=== PATIENT | female | born 1960 | race Caucasian/White ===

== ENCOUNTER 2024-07-17 11:18 | Inpatient (IN) | payer MEDICARE, BC, SELFPAY ==
[2024-07-17] VITALS (12 sets, daily range): BP systolic 88–117; BP diastolic 66–97; PULSE 108–151; RESP 16–98; TEMP 36.5–36.7; O2SAT 93–98; BMI 30.1; BMI 29.9; BMI 29.2
--- NOTE | 2024-07-17 11:46 | XR_ITS ---
Examination: CT brain head without contrast. 2-D sagittal coronal reconstructions Date and time of exam:July 17, 2024 1158 hours INDICATIONS: Onset lightheadedness dizziness episodes today CTDI: vol (mGy):45.3 DLP: (mGycm):943 Technique: Multiple CT axial sections of the brain have been obtained, 5 mm slice thickness. Contrast has not been administered. 2-D sagittal, coronal reconstructions have been obtained Low dose protocols were performed. One or more of the following dose reduction techniques were used; automated exposure control, adjustment of the mA and/or KV according to patient size, use of iterative reconstruction technique. Findings: No significant ventricular enlargement. Intra-axial or extra-axial hemorrhage density is not seen. No mass effect or midline shift Basal cisterns are not remarkable. Fourth ventricle is midline. Cranial vault intact. Old infarct left cerebellar hemisphere Impression: Negative for acute hemorrhage, mass effect or midline shift If symptoms persist, consider brain MRI follow-up, stroke protocol
--- NOTE | 2024-07-17 11:46 | EKG_ITS ---
[facility] Test Date: 2024-07-17 Pat Name: BISMARK PINTO Department: Room: - Gender: Female Carrier Blower: : 1960 Requested By: Hill Traore Order Number: [id number] Reading MD: Hill Traore Measurements Intervals [place] Rate: 156 P: AL: QRS: 62 QRSD: 84 T: 0 QT: 257 QTc: 415 Interpretive Statements ATRIAL FIBRILLATION WITH RAPID VENTRICULAR RESPONSE NONSPECIFIC ST & T-WAVE ABNORMALITY CRITICAL TEST RESULT No previous ECG available for comparison /store/S0/[id number]/ecg/[id number].pdf
--- NOTE | 2024-07-17 11:47 | PD.EDRME ---
Rapid Medical Screening Exam RME Arrival date/time: 07/17/24 11:18 63-year-old female with a history of a CVA, presents to the emergency room with a chief complaint of a headache, dizziness, lightheadedness and left-sided chest pain x 3 days I have greeted and performed a focused initial assessment of this patient. A comprehensive ED assessment and evaluation of the patient, analysis of all test results, and completion of the medical decision making process will be conducted by additional ED providers. Chief Complaint: Shortness of Breath/Dyspnea Time Seen by Provider: 07/17/24 11:26 Vital signs reviewed by provider: Yes
--- NOTE | 2024-07-17 12:19 | EDNOTE_ITS ---
ED SOB =RME/HPI General Chief Complaint: Shortness of Breath/Dyspnea Stated Complaint: SOB X1WEEK AND PAIN BEHIND EYES SINCE LAST NIGHT Time Seen by Provider: 07/17/24 11:26 Arrival date/time: 07/17/24 11:18 Limitations: no limitations RME / HPI RME / HPI Narrative: 07/17/24 11:18 63-year-old female with a history of a CVA, presents to the emergency room with a chief complaint of a headache, dizziness, lightheadedness and left-sided chest pain x 3 days I have greeted and performed a focused initial assessment of this patient. A comprehensive ED assessment and evaluation of the patient, analysis of all test results, and completion of the medical decision making process will be conducted by additional ED providers. DR. LERMA MAIN ED EVALUATION: 63 year old female with history of CVA, hypertension, CHF, and cardiomyopathy who presents to the emergency department for evaluation of shortness of breath. She reports feeling increasingly winded for approximately one week, with symptoms worsening on exertion. Last night, she experienced a sharp, shooting pain located behind both eyes, causing concern and prompted her to seek care today. On arrival to the ED, the patient was found to be in atrial fibrillation with rapid ventricular response, with a heart rate in the 160s. She denies any prior diagnosis or history of atrial fibrillation. The patient also denies chest pain, cough, palpitations, abdominal pain, nausea, vomiting, diarrhea, or urinary symptoms. Related Data Allergies Allergy/AdvReac Type Severity Reaction Status Date / Time ADONIS Inhibitors Allergy Severe Anaphylaxis Verified 07/17/24 11:24 Review of Systems Review of Systems Narrative Review of Systems: GEN: No fever, no chills, no weight loss EYES: No discharge, no visual changes, +pain bejhind both eyes HEENT: No ear pain, no congestion, no sore throat PULM: + shortness of breath, no cough, no congestion CV: No chest pain, + dyspnea on exertion, no palpitations GI: No nausea, no vomiting, no diarrhea, no pain, no constipation : No frequency, no urgency and no dysuria MUSC/SKEL No joint pain, no back pain SKIN: No rash NEURO: No weakness, no headache Past Medical History Past Medical History CARDIAC: Positive Congestive Heart Failure RESPIRATORY: Positive Asthma; Negative Chronic Obstructive Pulmonary Disease (COPD) GENITOURINARY: Negative Renal Disease REPRODUCTIVE: Positive Breast Cancer ENDOCRINE: Negative Diabetes Mellitus Type 1 or Diabetes Mellitus Type 2 OTHER HISTORY: Positive Cancer and Breast Cancer Social History SMOKING STATUS: Never smoker ED Exam General Limitations: Present no limitations General appearance: Present alert, in no apparent distress and obese Head Head exam: Present atraumatic and normocephalic Eye Eye exam: Present normal appearance, PERRL and EOMI ENT ENT exam: Present normal exam, normal oropharynx and mucous membranes moist Neck Neck exam: Present normal inspection, full ROM and trachea midline Chest Chest inspection: Present normal inspection and symmetric chest wall rise Respiratory Respiratory exam: Present normal lung sounds bilaterally Cardiovascular Cardiovascular exam: Present irregular rhythm (irregularly irregular), normal heart sounds and other (No murmur, no S3 ) Abdominal Exam Abdominal exam: Present soft and normal bowel sounds Extremities Exam Extremities exam: Present normal inspection and full ROM Back Exam Back exam: Present normal inspection and full ROM Neurological Exam Neurological exam: Present alert, oriented X3 and CN II-XII intact Psychiatric Psychiatric exam: Present normal affect and normal mood Skin Skin exam: Present warm, dry, intact and normal color Course Quality Measures none Orders Category Date Time Status COVID-19 Screening Questionnaire NOW Care 07/17/24 15:41 Active Decision to Admit X1 Care 07/17/24 15:41 Active EKG (ED ONLY) *Do not use* NOW Care 07/17/24 11:[address] head/brain wo con Stat Exams 07/17/24 11:46 Completed CXRP [XR chest 1V portable] Stat Exams 07/17/24 12:23 Completed EKG (ED Only) Stat Exams 07/17/24 11:46 Draft BNP [B-Type Natriuretic Peptide] Stat Lab 07/17/24 12:18 Completed CBC Stat Lab 07/17/24 12:18 Completed Comprehensive Metabolic Panel Stat Lab 07/17/24 12:18 Completed Drug Screen,Urine Stat Lab 07/17/24 11:46 Stop Req Magnesium Stat Lab 07/17/24 12:18 Completed Partial Thromboplastin Time Stat Lab 07/17/24 12:18 Completed Prothrombin Time with INR Stat Lab 07/17/24 12:18 Completed Troponin I Stat Lab 07/17/24 12:18 Completed Urinalysis Stat Lab 07/17/24 13:55 Completed Urine Culture Stat Lab 07/17/24 13:55 Received DILTIAZEM in D5W 125 MG Med 07/17/24 12:24 Active 125 mg in 125 ml IV 5 mg/hr Diltiazem Inj [Cardizem Inj] Med 07/17/24 12:23 Discontinued 15 mg IV X1 ONE Enoxaparin [Lovenox] Med 07/17/24 15:25 Discontinued 80 mg SC X1 ONE Furosemide Inj [Lasix Inj] Med 07/17/24 12:25 Discontinued 40 mg IVP X1 ONE Vital Signs Vital signs: Vital Signs Temperature 98.0 F 07/17/24 11:42 Pulse Rate 141 H 07/17/24 11:42 Respiratory Rate 20 07/17/24 11:42 Blood Pressure 88/68 L 07/17/24 11:42 Pulse Oximetry (%) 96 07/17/24 11:42 Oxygen Delivery Method Room Air 07/17/24 11:42 Pulse ox is 96% on room air which is adequate. Shortness of Breath / Dyspnea MDM Narrative MDM Narrative:: Nicole Mir am scribing for and in the presence of Dr. Lerma. Patient data External records reviewed:: None (No previous ED visits for review ) Clinical information provided by:: patient Social determinants that could affect healthcare access:: none Patient has the following chronic illnesses:: CVA, hypertension, CHF, and cardiomyopathy How is presenting disease/condition affected by chronic disease/condition?: exacerbated by Evaluation data The following diagnostics were reviewed and interpreted by me:: lab results, radiology exam(s) and EKG tracing(s) (EKG @ 11:51 AM. Atrial fibrillation with RVR, rate 156, QRS 84ms, QT/QTc 257/345ms, no STEMI ) Lab and/or radiology exams considered but not ordered:: None Interpretation Summary: Ordering Physician: Hill Zhu Date of Service: 07/17/24 Procedure(s): CT head/brain wo con Accession Number(s): [id number] cc: Hill Zhu; Otis Rivera MD~ Examination: CT brain head without contrast. 2-D sagittal coronal reconstructions Date and time of exam:July 17, 2024 1158 hours INDICATIONS: Onset lightheadedness dizziness episodes today CTDI: vol (mGy):45.3 DLP: (mGycm):943 Technique: Multiple CT axial sections of the brain have been obtained, 5 mm slice thickness. Contrast has not been administered. 2-D sagittal, coronal reconstructions have been obtained Low dose protocols were performed. One or more of the following dose reduction techniques were used; automated exposure control, adjustment of the mA and/or KV according to patient size, use of iterative reconstruction technique. Findings: No significant ventricular enlargement. Intra-axial or extra-axial hemorrhage density is not seen. No mass effect or midline shift Basal cisterns are not remarkable. Fourth ventricle is midline. Cranial vault intact. Old infarct left cerebellar hemisphere Impression: Negative for acute hemorrhage, mass effect or midline shift If symptoms persist, consider brain MRI follow-up, stroke protocol Dictated By: Otis Rivera MD Signed By: <Electronically signed by Otis Rivera MD in OV> 07/17/24 1219 === Ordering Physician: Bimal Lerma MD Date of Service: 07/17/24 Procedure(s): XR chest 1V portable Accession Number(s): [id number] cc: Bimal Lerma MD; Otis Rivera MD~ Examination: AP chest single view Technique one AP portable upright chest single view Date and time: July 17, 2024 1308 hours INDICATIONS: Shortness of breath today. FINDINGS: Early heart failure. Mild enlargement cardiac contour Prominent vascular congestion Suspicious for early septal edema at the lung bases Right axillary surgical clips No lobar pneumonia Prominent osteopenia IMPRESSION: Early heart failure Dictated By: Otis Rivera MD Signed By: <Electronically signed by Otis Rivera MD in [place]> 07/17/24 1324 Medications / Prescriptions Medications or Prescriptions considered but not ordered:: None Medication administrations:: Medication Administration History Diltiazem HCl (Diltiazem In D5w 125 Mg) 125 mg in 125 mls @ 5 mls/hr IV .Q24H [facility]; Protocol Stop: 08/16/24 12:23 Last Titration: 07/17/24 15:00 Dose: 5 mg/hr, 5 mls/hr Documented By: Titration: 07/17/24 14:00 Dose: 5 mg/hr, 5 mls/hr Documented By: Titration: 07/17/24 13:00 Dose: 5 mg/hr, 5 mls/hr Documented By: Admin: 07/17/24 12:35 Dose: 5 mg/hr, 5 mls/hr Documented By: EF Discontinued Medications Diltiazem HCl (Diltiazem Inj 5 Mg/Ml Vial 5 Ml) 15 mg IV X1 ONE Stop: 07/17/24 12:24 Last Admin: 07/17/24 12:38 Dose: 15 mg Documented By: EF Enoxaparin Sodium (Enoxaparin Sod Inj 80 Mg/0.8 Ml Syringe) 80 mg SC X1 ONE Stop: 07/17/24 15:26 Last Admin: 07/17/24 15:39 Dose: 80 mg Documented By: EF Furosemide (Furosemide Inj 10 Mg/Ml 4ml Vial) 40 mg IVP X1 ONE Stop: 07/17/24 12:26 Last Admin: 07/17/24 12:34 Dose: 40 mg Documented By: EF See above Consultations Consultation(s) initiated? (list below): Yes Consultation #1 (Physician, Specialty, Details): I spoke with resident working with Dr. Hobson. Discussed patients PMHx, HPI, ED course, exam findings, labs, and radiology results. The hospitalist agree to accept the patient for admission. Time: 15:40 Diagnosis Shortness of Breath Differential Diagnosis: acute exacerbation of chronic obstructive airways disease, congestive heart failure and community acquired pneumonia Most likely diagnosis given after review of the tests above:: acute CHF new onset afib with rvr dyspnea Admission Indicated Admission indicated?: indicated Admission Request Was there a request for admission?: Yes Admission Attestation Admission request attestation: Discussed case with [] from Hospitalist service regarding admission. Discussed patients ED course, exam findings, labs, and radiology results. The Hospitalist [agrees,declines] to accept the patient for admission. Disposition Plan Disposition Plan: Admit Critical Care Time Critical Care Time Critical Care Time: Yes Total Critical Care Time (min.): 60 Attestation: The high probability of sudden, clinically significant deterioration in the patient's condition required the highest level of my preparedness to intervene urgently. The services I provided to this patient were to treat and/or prevent clinically significant deterioration. Services included the following: chart data review, reviewing nursing notes and/or old charts, documentation time, performance management consultant collaboration regarding findings and treatment options, medication orders and management, direct patient care, vital sign assessments and ordering, interpreting and reviewing diagnostic studies and lab tests. Aggregate critical care time includes only time during which I was engaged in work directly related to the patient's care, as described above, whether at bedside or elsewhere in the Emergency Department. It did not include time spent performing other reported procedures or the services of residents, students, nurses or physician assistants. Discharge Plan Plan Patient Disposition: Admit Acute Care w/in Hospital Prescriptions/Referrals Referrals: Valeri Brothers PA-C [Primary Care Provider] - In 1 week Problem List Clinical Impression: Acute CHF, New onset a-fib, Dyspnea Patient/Caregiver Discharge Instructions Print Language: Hebrew Stand Alone Forms: Pushpa Award Info., Patient Portal Info Letter
--- NOTE | 2024-07-17 12:23 | XR_ITS ---
Examination: AP chest single view Technique one AP portable upright chest single view Date and time: July 17, 2024 1308 hours INDICATIONS: Shortness of breath today. FINDINGS: Early heart failure. Mild enlargement cardiac contour Prominent vascular congestion Suspicious for early septal edema at the lung bases Right axillary surgical clips No lobar pneumonia Prominent osteopenia IMPRESSION: Early heart failure
[2024-07-17 12:28] LABS: Basophils # (Auto) 0.1 Thou/mm3 (0.0-0.2); Basophils % (Auto) 1 % (0-2.5); Eosinophils # (Auto) 0.1 Thou/mm3 (0.0-0.5); Eosinophils % (Auto) 0 % (0-10); Hematocrit 40.2 % (36.0-46.0); Hemoglobin 13.7 g/dL (12.0-16.0); Immature Granulocytes % (Auto) 1 % (0-0); Immature Granulocytes Auto 0.09 Thou/mm3 (0.00-0.00); Lymphocytes # (Auto) 4.7 Thou/mm3 (1.0-4.8); Lymphocytes % (Auto) 29 % (10-50); Mean Corpuscular HGB Conc 34.1 g/dl (31.0-37.0); Mean Corpuscular Hemoglobin 32.2 pg (25.0-35.0); Mean Corpuscular Volume 95 fL (80-100); Monocytes # (Auto) 1.4 Thou/mm3 (0.0-0.8); Monocytes % (Auto) 8 % (0-12); Neutrophils % (Auto) 61 % (37-80); Nucleated Red Blood Cell % 0 /100 WBC (0); Platelet Count 347 Thou/mm3 (140-440); RDW Standard Deviation 49.2 fL (36.4-46.3); Red Blood Count 4.25 Miln/mm3 (4.00-5.20); White Blood Count 16.2 Thou/mm3 (3.6-11.0)
[2024-07-17] MEDS: FUROSEMIDE INJ 10 MG/ML 4ML VIAL 40 MG IVP (12:34)
[2024-07-17] MEDS: DILTIAZEM in D5W 125 MG 125 MG/125 ML BAG IV (12:35)
[2024-07-17] MEDS: DILTIAZEM INJ 5 MG/ML VIAL 5 ML 15 MG IV (12:38)
[2024-07-17 12:45] LABS: Partial Thromboplastin Time 21.8 Seconds (22.0-36.0); Prothrombin Time 11.3 Seconds (9.0-12.2)
[2024-07-17 12:52] LABS: Alanine Aminotransferase 265 U/L (10-49); Albumin, Serum 4.1 gm/dL (3.4-4.8); Albumin/Globulin Ratio 1.9 (1.2-2.2); Alkaline Phosphatase 84 U/L (46-116); Anion Gap 12 (7-16); Aspartate Amino Transferase 103 U/L (0-34); BUN/Creatinine Ratio 22 Ratio (12-20); Bilirubin,Total 0.7 mg/dL (0.3-1.2); Blood Urea Nitrogen 22 mg/dL (9-23); Calcium 8.7 mg/dL (8.3-10.6); Calcium (Corrected) 8.7 mg/dL (8.5-10.1); Carbon Dioxide 21.8 mMol/L (20.0-31.0); Chloride 107 mMol/L (98-107); Globulin 2.2 gm/dL (2.3-3.5); Glucose 123 mg/dL (74-106); Magnesium 2.4 mg/dL (1.6-2.6); Osmolality,Calculated 285 (275-295); Potassium 3.8 mMol/L (3.4-5.1); Sodium 141 mMol/L (136-145); Total Protein 6.3 gm/dL (5.7-8.2); Troponin I < 0.020 ng/mL (0.0-0.045); eGFR > 60 See Note
[2024-07-17 13:22] LABS: B-Type Natriuretic Peptide 384 pg/mL (0-100)
[2024-07-17 13:57] LABS: Collection Type, Urine Clean Catch
[2024-07-17 14:04] LABS: Bilirubin,Urine Negative (Negative); Blood,Urine Negative (Negative); Clarity,Urine Clear (Clear/Hazy); Color,Urine Colorless (Lt Yel-Yel); Glucose, Urine Negative (Negative); Hyaline Casts,Urine < 1 /hpf (0-1); Ketones,Urine Negative (Negative); Leukocyte Esterase,Urine Positive (Negative); Nitrite,Urine Negative (Negative); PH,Urine 6.5 (5.0-7.0); Protein,Urine Negative (Neg - Trace); RBC,Urine 1 /hpf (0-3); Specific Gravity,Urine 1.008 (1.001-1.035); Squamous Epithelial Cell,Urine 1 /hpf (0-5); Urobilinogen,Urine Negative mg/dL (0.0-1.0); WBC,Urine 3 /hpf (0-5)
[2024-07-17] MEDS: ENOXAPARIN SOD INJ 80 MG/0.8 ML SYRINGE SC (15:39)
--- NOTE | 2024-07-17 16:34 | PD.RESHP ---
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 She states that starting 4 to 5 days ago she experienced shortness of breath and a raspy voice for which she went to her PCP and was given short course of azithromycin and prednisone. Symptoms did not improve and brought her to the ED, and found to be in A-fib with RVR with heart rate in 140s to 150s. Leading up to admission, patient did not endorse any chest pain, palpitations, or lightheadedness. Even while talking to her at bedside with HR in 130s she did not feel short of breath or palpitations. Has never happened before. In ED, initial vitals of BP 88/68, HR 141, other vitals stable. WBC 16, K 3.8, Mg 2.4, AST 103, ALT 265, BNP 384, trop negative. EKG showed heart rate 156, irregular, unable to appreciate P waves thus likely A-fib with RVR. CXR showed mildly enlarged cardiac contour, vascular congestion, possible early septal edema at lung bases. CT head negative for acute findings but did show evidence of old infarct of left cerebellar hemisphere. 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[place]), cardiomyopathy, CVA with left-sided deficits in 2002, hypertension, asthma, hypothyroidism SHx: no illicit drug use, alcohol, or cigarette use Allergies: ADONIS-i's Review of Systems Review of Systems Systems Reviewed: All systems reviewed, normal except as documented Exam Vital Signs Temp Pulse Resp BP Pulse Ox O2 Del Method 97.8 F 118 H 32 H 113/66 96 Room Air 07/17/24 16:17 07/17/24 16:17 07/17/24 16:17 07/17/24 16:17 07/17/24 16:17 07/17/24 16:17 Narrative Exam General: AOx3, no acute distress, able to speak full sentences HEENT: NC/AT, mucous membranes moist, bilateral sclera anicteric Cardiovascular: tachycardic, irregular, S1/S2 present, no murmurs appreciated Pulmonary: clear to auscultation bilaterally, no rales/rhonchi/wheezes Abdominal: soft, non-tender, non-distended, no rebound/guarding, normal bowel sounds present Musculoskeletal: normal ROM, no peripheral edema Skin: warm and dry, intact, no rashes Neuro: CN II-XII intact, no focal deficits Results: Labs 07/18/24 04:50 07/18/24 04:50 Labs: Short CBC 07/17/24 Range/Units 12:18 WBC 16.2 H (3.6-11.0) Thou/mm3 Hgb 13.7 (12.0-16.0) g/dL Hct 40.2 (36.0-46.0) % Plt Count 347 (140-440) Thou/mm3 BMP 07/17/24 12:18 Sodium 141 Potassium 3.8 Chloride 107 Carbon Dioxide 21.8 BUN 22 Creatinine 1.0 Glucose 123 H Calcium 8.7 Cardiac Enzymes 07/17/24 Range/Units 12:18 Troponin I < 0.020 (0.0-0.045) ng/mL Liver Function 07/17/24 Range/Units 12:18 Total Bilirubin 0.7 (0.3-1.2) mg/dL AST 103 H (0-34) U/L ALT 265 H (10-49) U/L Alkaline Phosphatase 84 (46-116) U/L Albumin 4.1 (3.4-4.8) gm/dL Urine 07/17/24 Range/Units 13:55 Urine Color Colorless A (Lt Yel-Yel) Urine Clarity Clear (Clear/Hazy) Urine pH 6.5 (5.0-7.0) Ur Specific [place] 1.008 (1.001-1.035) Urine Protein Negative (Neg - Trace) Urine Glucose (UA) Negative (Negative) Quality Measures Quality Measures none Advance care planning discussed with:: patient and significant other Medications Home Medications and Allergies Home Medications ?Medication ?Instructions ?Recorded ?Confirmed ?Type albuterol sulfate 90 mcg/actuation 2 puff inhalation Q12H 07/17/24 07/17/24 History aerosol inhaler amlodipine 5 mg tablet 5 mg PO QDAY 07/17/24 07/17/24 History azelastine 0.05 % eye drops 1 drp ophthalmic (eye) BID 07/17/24 07/17/24 History azithromycin 250 mg tablet 500 mg PO DAILY 07/17/24 07/17/24 History carvedilol 3.125 mg tablet 3.125 mg PO Q12H 07/17/24 07/17/24 History ezetimibe 10 mg tablet 10 mg PO QDAY 07/17/24 07/17/24 History fluticasone propionate 220 2 puff inhalation Q12H 07/17/24 07/17/24 History mcg/actuation HFA aerosol inhaler isosorbide mononitrate 30 mg 30 mg PO BID 07/17/24 07/17/24 History tablet,extended release 24 hr levothyroxine 50 mcg tablet 50 mcg PO QDAY 07/17/24 07/17/24 History potassium chloride 20 mEq 20 meq PO QDAY 07/17/24 07/17/24 History tablet,extended release(part/cryst) prednisone 20 mg tablet 40 mg PO DAILY 07/17/24 07/17/24 History torsemide 20 mg tablet 20 mg PO QDAY 07/17/24 07/17/24 History Allergies Allergy/AdvReac Type Severity Reaction Status Date / Time ADONIS Inhibitors Allergy Severe Anaphylaxis Verified 07/17/24 11:24 Visit Medications Acetaminophen (Acetaminophen 325 Mg Tablet) 650 mg PO Q6H PRN PRN Reason: PAIN 1-3 OR FEVER > 100.4 Stop: 08/16/24 16:16 Diltiazem HCl (Diltiazem In D5w 125 Mg) 125 mg in 125 mls @ 5 mls/hr IV .Q24H [facility]; Protocol Stop: 08/16/24 12:23 Last Titration: 07/17/24 15:00 Dose: 5 mg/hr, 5 mls/hr Ondansetron HCl (Ondansetron Inj 2 Mg/Ml Inj 2 Ml) 4 mg IVP Q6H PRN; Protocol PRN Reason: NAUSEA OR VOMITING Stop: 08/16/24 16:16 Discontinued Medications Diltiazem HCl (Diltiazem Inj 5 Mg/Ml Vial 5 Ml) 15 mg IV X1 ONE Stop: 07/17/24 12:24 Last Admin: 07/17/24 12:38 Dose: 15 mg Enoxaparin Sodium (Enoxaparin Sod Inj 80 Mg/0.8 Ml Syringe) 80 mg SC X1 ONE Stop: 07/17/24 15:26 Last Admin: 07/17/24 15:39 Dose: 80 mg Furosemide (Furosemide Inj 10 Mg/Ml 4ml Vial) 40 mg IVP X1 ONE Stop: 07/17/24 12:26 Last Admin: 07/17/24 12:34 Dose: 40 mg Assessment & Plan Plan Florecita Farrar is a 63-year-old female with 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 #New onset atrial fibrillation with RVR Presents with shortness of breath that started 4 to 5 days ago. Denies palpitations, chest pain, lightheadedness or previous episodes of a-fib with RVR. ? Cardiology consulted, appreciate recommendations ? Diltiazem drip ? Hold other antihypertensive medications ? Eliquis 5 mg p.o. BID ? Keep Mg > 2 and K > 4 at all times #History of CHF #History of cardiomyopathy Follows-up with maintenance construction helper in [place], unsure if HFpEF or HFrEF and no records here. ? Cardiology consulted as above ? Echo pending ? Coreg held #History of CVA with left-sided deficits ? Aspirin 81 mg daily #Hypertension ? Holding antihypertensives for now per cardiology recommendations #Asthma ? Albuterol inhaler ? Fluticasone inhaler #Hypothyroidism ? Levothyroxine 50 mcg p.o. [facility] Hospital management: Disposition: a-fib with RVR on diltiazem drip Diet: cardiac Lines: PIV DVT prophylaxis: SCDs CODE STATUS: full code ----- Plan discussed with attending physician Dr. Jazlyn Townsend MD PGY-1 Internal Medicine Attending Provider Attestation/Addendum I attest that I was physically present for the evaluation, physical examination, lab and imaging review of the patient with the residents. I discussed the case with the residents and agree with the findings and plans of care as documented above. Patient is a 63 years old female with past medical history of CHF, cardiomyopathy, CVA with left-sided deficits, hypertension, asthma, hypothyroidism who presented to the ED with complaint of shortness of breath. Patient has been having some shortness of breath and raspy voice for last 4 to 5 days for which she has received a course of azithromycin and prednisone with her PCP. In the ED, she was found to have blood pressure of 8141. EKG was obtained, which showed A-fib with RVR with heart rate of 156. Lab results show WBC of 16,, ALT 265, BNP 384. Troponin was negative. Chest x-ray shows vascular congestion. CT head was also obtained which was negative for acute hemorrhage, mass effect or midline shift but showed old infarct of left cerebellar hemisphere. After examination of the patient and review of the clinical data I feel that this patient needs admission to the hospital for further treatment/evaluation of new onset A-fib with RVR. Patient has been started on diltiazem drip in the ED, we will continue with the drip. Patient received a dose of Lovenox in the ED, we will start Eliquis 5 mg twice daily from tomorrow morning. We will closely monitor her electrolytes and replete as needed. We will obtain echocardiography and cardiology consult. We will continue aspirin albuterol, fluticasone and levothyroxine for her history of CVA, asthma and hypothyroidism. Pretty Hobson MD
[2024-07-17] MEDS: FLUTICASONE 220 MCG 2 PUFF INH (16:57)
--- NOTE | 2024-07-17 17:39 | PD.RESCONSUL ---
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 She was recently diagnosed with upper respiratory infection by her PCP and was started on AZITHROMYCIN and STEROIDS. At the time she was complaining of shortness of breath. Completed course of ANTIBIOTICS and currently taking STEROIDS. However, she has no improvement in symptoms, but denies worsening of symptoms. Also denied lower extremity edema. SOB occurs at rest, slightly worsened with activity, although endorsing without orthopnea or chest pain. Denied having chest pain currently or previously. Denies having palpitations ever. 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 Her last visit with cardiology was in January 2024, no changes in her meds were made. Denies headache, fever, chills, visual changes, cough, changes in appetite, fatigue or generalized weakness, abdominal pain, N/V/D/C, abnormal weight changes, or any urinary symptoms. No sick exposure or recent travel. She was born in [place], moved to [place] in her 20s. Currently , lives at home with her and her middle aged child. Has 3 children, all of them are healthy. Her dad passed from a stroke at the age of 46, her mother is generally healthy. No family history of sudden . Reports family history of coagulopathy in her uncles and father. 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 Past surgical history significant for right partial mastectomy and hysterectomy. Home medications include AMLODIPINE 5 mg, CARVEDILOL 3.125 mg BID, nitrite 30 mg BID, LEVOTHYROXINE 50 mg, TORSEMIDE 20 mg daily, AZELASTINE eyedrops, ALBUTEROL SULFATE inhaler BID. Reports allergies to ADONIS inhibitor and statin. On presentation, she was found in A-fib with RVR on EKG, HR 156, and was started on DILTIAZEM. BP 88/68. Initially, improved to 113/73 after DILTIAZEM. RR 20, satting 96% on room air. WBC 16.2. Likely 2/2 STEROIDS, she is afebrile. Hgb 13.7, platelets 347. Normal coag panel. CMP significant for GLUCOSE 123, AST 103, ALT 265, BNP 384. Troponin was negative, magnesium 2.4, potassium 3.8. UA positive leukocyte esterase, but she denies urinary symptoms, urine culture pending. Head CT negative for acute pathology. CXR showed early heart failure, prominent vascular congestion. No recent echo on file. Her symptoms and presentation of shortness of breath likely related to new onset atrial fibrillation. She was never diagnosed of A-fib, unaware of any kind of arrhythmia diagnosis in the past. Recommended continuing DILTIAZEM at 5 mg/h. May increase DILTIAZEM tp 10 mg/h onyl if BP can tolerate (SBP >120). Avoid ANTIHYPERTENSIVE and DIURETICS for now, no signs of fluid overload on exam. We stopped AMLODIPINE, CARVEDILOL, and TORSEMIDE until blood pressure improves. cc:: cc: Pretty Hobson MD Review of Systems Review of Systems Narrative Review of Systems: 12 point system review negative except for above mentioned. Exam Vital Signs Temp Pulse Resp BP Pulse Ox O2 Del Method 97.8 F 115 H 18 113/66 93 L Room Air 07/17/24 16:17 07/17/24 16:58 07/17/24 16:58 07/17/24 16:17 07/17/24 16:58 07/17/24 16:17 Narrative Exam GENERAL Normal appearing elderly female, NAD, satting well on room air. HEENT NCAT.?LILY. Oral mucosa is moist. Patent Nares. Bilateral conjunctiva injection (chronic 2/2 allergies, per patient) NECK Supple, nontender, no thyromegaly, no meningismus, no JVD, no step offs CHEST Tachycardic, irregularly irregular rhythm, no m/g/r CTAB, no w/r/r. Symmetrical chest rise. No intercostal subcostal retraction Atraumatic, nontender, no crepitus, symmetrical expansion. ABDOMEN Soft, flat, nontender. No guarding/rebound tenderness/masses. Bowel sounds presents EXTREMITIES No edema/cyanosis.? SKIN Warm and dry, no jaundice/rashes. NEUROMUSCULAR No lumbar or midline, no CVA, no paraspinal muscle spasm or tenderness. Moves all 4 extremities well, with full ROM and good CSM. SHAH x4, CN II-XII grossly intact. No focal neurologic deficits. PSYCHIATRY Normal mood and affect, cooperative, no SI or HI or hallucinations. Results Labs 07/17/24 12:18 07/17/24 12:18 Labs: Short CBC 07/17/24 Range/Units 12:18 WBC 16.2 H (3.6-11.0) Thou/mm3 Hgb 13.7 (12.0-16.0) g/dL Hct 40.2 (36.0-46.0) % Plt Count 347 (140-440) Thou/mm3 BMP 07/17/24 12:18 Sodium 141 Potassium 3.8 Chloride 107 Carbon Dioxide 21.8 BUN 22 Creatinine 1.0 Glucose 123 H Calcium 8.7 Cardiac Enzymes 07/17/24 Range/Units 12:18 Troponin I < 0.020 (0.0-0.045) ng/mL Liver Function 07/17/24 Range/Units 12:18 Total Bilirubin 0.7 (0.3-1.2) mg/dL AST 103 H (0-34) U/L ALT 265 H (10-49) U/L Alkaline Phosphatase 84 (46-116) U/L Albumin 4.1 (3.4-4.8) gm/dL Urine 07/17/24 Range/Units 13:55 Urine Color Colorless A (Lt Yel-Yel) Urine Clarity Clear (Clear/Hazy) Urine pH 6.5 (5.0-7.0) Ur Specific [place] 1.008 (1.001-1.035) Urine Protein Negative (Neg - Trace) Urine Glucose (UA) Negative (Negative) Quality Measures Quality Measures none Advance care planning discussed with:: patient Medications Home Medications and Allergies Home Medications ?Medication ?Instructions ?Recorded ?Confirmed ?Type albuterol sulfate 90 mcg/actuation 2 puff inhalation Q12H 07/17/24 07/17/24 History aerosol inhaler amlodipine 5 mg tablet 5 mg PO QDAY 07/17/24 07/17/24 History azelastine 0.05 % eye drops 1 drp ophthalmic (eye) BID 07/17/24 07/17/24 History azithromycin 250 mg tablet 500 mg PO DAILY 07/17/24 07/17/24 History carvedilol 3.125 mg tablet 3.125 mg PO Q12H 07/17/24 07/17/24 History ezetimibe 10 mg tablet 10 mg PO QDAY 07/17/24 07/17/24 History fluticasone propionate 220 2 puff inhalation Q12H 07/17/24 07/17/24 History mcg/actuation HFA aerosol inhaler isosorbide mononitrate 30 mg 30 mg PO BID 07/17/24 07/17/24 History tablet,extended release 24 hr levothyroxine 50 mcg tablet 50 mcg PO QDAY 07/17/24 07/17/24 History potassium chloride 20 mEq 20 meq PO QDAY 07/17/24 07/17/24 History tablet,extended release(part/cryst) prednisone 20 mg tablet 40 mg PO DAILY 07/17/24 07/17/24 History torsemide 20 mg tablet 20 mg PO QDAY 07/17/24 07/17/24 History Allergies Allergy/AdvReac Type Severity Reaction Status Date / Time ADONIS Inhibitors Allergy Severe Anaphylaxis Verified 07/17/24 11:24 Visit Medications Acetaminophen (Acetaminophen 325 Mg Tablet) 650 mg PO Q6H PRN PRN Reason: PAIN 1-3 OR FEVER > 100.4 Stop: 08/16/24 16:16 Albuterol (Albuterol Inh 8 Gm) 2 puff INH Q12H PRN PRN Reason: SHORTNESS OF BREATH Stop: 08/16/24 16:44 Amlodipine Besylate (Amlodipine Besylate 5 Mg Tablet) 5 mg PO QDAY MIKE Stop: 08/17/24 08:59 Carvedilol (Carvedilol 3.125 Mg Tablet) 3.125 mg PO BID MIKE Stop: 08/16/24 16:44 Ezetimibe (Ezetimibe 10 Mg Tablet) 10 mg PO QDAY MIKE Stop: 08/17/24 08:59 Fluticasone Propionate (Fluticasone 220 Mcg 12 Gm Inh) 2 puff INH Q12HR MIKE Stop: 08/16/24 16:44 Last Admin: 07/17/24 16:57 Dose: 2 puff Diltiazem HCl (Diltiazem In D5w 125 Mg) 125 mg in 125 mls @ 5 mls/hr IV .Q24H MIKE; Protocol Stop: 08/16/24 12:23 Last Titration: 07/17/24 17:00 Dose: 5 mg/hr, 5 mls/hr Isosorbide Mononitrate (Isosorbide Er Mononitrate 30 Mg Tabcr) 30 mg PO BID [facility] Stop: 08/16/24 20:59 Levothyroxine Sodium (Levothyroxine Sodium 25 Mcg Tablet) 50 mcg PO ACBR MIKE Stop: 08/17/24 05:59 Ondansetron HCl (Ondansetron Inj 2 Mg/Ml Inj 2 Ml) 4 mg IVP Q6H PRN; Protocol PRN Reason: NAUSEA OR VOMITING Stop: 08/16/24 16:16 Potassium Chloride (Potassium Chloride 20 Meq Tabcr) 20 meq PO QDAY [facility] Stop: 08/17/24 08:59 Potassium Chloride (Potassium Chloride 20 Meq Tabcr) 40 meq PO X1 ONE Stop: 07/17/24 17:39 Torsemide (Torsemide 20 Mg Tablet) 20 mg PO QDAY [facility] Stop: 08/17/24 08:59 Discontinued Medications Diltiazem HCl (Diltiazem Inj 5 Mg/Ml Vial 5 Ml) 15 mg IV X1 ONE Stop: 07/17/24 12:24 Last Admin: 07/17/24 12:38 Dose: 15 mg Enoxaparin Sodium (Enoxaparin Sod Inj 80 Mg/0.8 Ml Syringe) 80 mg SC X1 ONE Stop: 07/17/24 15:26 Last Admin: 07/17/24 15:39 Dose: 80 mg Furosemide (Furosemide Inj 10 Mg/Ml 4ml Vial) 40 mg IVP X1 ONE Stop: 07/17/24 12:26 Last Admin: 07/17/24 12:34 Dose: 40 mg Assessment & Plan Plan This is a 63-year-old female with PMHx of CHF on DIURETICS and CARVEDILOL, breast cancer s/p right partial mastectomy, cardiomyopathy, HTN, asthma, hypothyroidism, 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 No known history of A-fib or arrhythmia, not on anticoagulation or rhythm/rate control. Admission EKG showed A-fib with RVR, HR 140s. Now on DILTIAZEM drip. BP on the softer side. HR remains uncontrolled. SOB likely related to A-fib with RVR. Otherwise she is hemodynamically stable, denies chest pain, shortness of breath, palpitations, satting well on room air. Goal is to improve blood pressure, SBP >120, in order to increase DILTIAZEM drip to 10 Mg/HR. Avoid ANTIHYPERTENSIVE and DIURETICS for now, no signs of fluid overload. All antihypertensives have been discontinued. Will follow-up with echocardiogram, lipid panel, TSH, A1c. Repeat EKG in the morning. [id number], HASBLED 3. Recommended ELIQUIS 5 mg BID. Hx CVA with residual left-sided deficit Family history of coagulopathy Head CT negative for acute pathology. History of hypercoagulability and several uncles, father passed of clotting disorder at the age of 46. Continue home ASPIRIN 81 mg daily Asthma No sign of asthma exacerbation Continue home ALBUTEROL Hypothyroidism Continue home meds Management of rest of the medical conditions as per primary team and other consultants. Thank you for the consult and allowing me to participate in the care of the patient. Cardiology will continue to follow. Case was discussed with attending, Dr. Polanco. Jose Perez DO PGYI
[2024-07-17] MEDS: carVEDILOL 3.125 MG TABLET PO (18:26)
[2024-07-17] MEDS: POTASSIUM CHLORIDE 20 mEq TABCR 40 MEQ PO (19:26)
[2024-07-17] MEDS: APIXABAN 2.5 MG TABLET 5 MG PO (20:39)
[2024-07-18] VITALS (13 sets, daily range): BP systolic 91–117; BP diastolic 58–88; PULSE 91–131; RESP 16–97; TEMP 36.1–36.9; O2SAT 94–99; BMI 29.2
[2024-07-18] MEDS: LEVOTHYROXINE SODIUM 25 MCG TABLET 50 MCG PO (05:24)
[2024-07-18 06:00] LABS: Basophils # (Auto) 0.1 Thou/mm3 (0.0-0.2); Basophils % (Auto) 1 % (0-2.5); Eosinophils # (Auto) 0.2 Thou/mm3 (0.0-0.5); Eosinophils % (Auto) 1 % (0-10); Hematocrit 39.8 % (36.0-46.0); Hemoglobin 13.4 g/dL (12.0-16.0); Immature Granulocytes % (Auto) 1 % (0-0); Immature Granulocytes Auto 0.06 Thou/mm3 (0.00-0.00); Lymphocytes # (Auto) 3.7 Thou/mm3 (1.0-4.8); Lymphocytes % (Auto) 35 % (10-50); Mean Corpuscular HGB Conc 33.7 g/dl (31.0-37.0); Mean Corpuscular Hemoglobin 32.1 pg (25.0-35.0); Mean Corpuscular Volume 95 fL (80-100); Monocytes # (Auto) 0.8 Thou/mm3 (0.0-0.8); Monocytes % (Auto) 7 % (0-12); Neutrophils # (Auto) 5.9 Thou/mm3 (1.8-7.7); Neutrophils % (Auto) 55 % (37-80); Nucleated Red Blood Cell % 0 /100 WBC (0); Platelet Count 289 Thou/mm3 (140-440); RDW Standard Deviation 49.5 fL (36.4-46.3); Red Blood Count 4.18 Miln/mm3 (4.00-5.20); White Blood Count 10.8 Thou/mm3 (3.6-11.0)
--- NOTE | 2024-07-18 06:00 | EKG_ITS ---
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
[2024-07-18 06:58] LABS: Alanine Aminotransferase 281 U/L (10-49); Albumin, Serum 3.8 gm/dL (3.4-4.8); Albumin/Globulin Ratio 1.8 (1.2-2.2); Alkaline Phosphatase 85 U/L (46-116); Anion Gap 13 (7-16); Aspartate Amino Transferase 110 U/L (0-34); BUN/Creatinine Ratio 23 Ratio (12-20); Bilirubin,Total 0.6 mg/dL (0.3-1.2); Blood Urea Nitrogen 21 mg/dL (9-23); Calcium 8.5 mg/dL (8.3-10.6); Calcium (Corrected) 8.7 mg/dL (8.5-10.1); Carbon Dioxide 25.2 mMol/L (20.0-31.0); Chloride 106 mMol/L (98-107); Creatinine (Component) 0.9 mg/dL (0.6-1.3); Estimated Creatinine Clearance 60.4 mL/min (>60); Globulin 2.1 gm/dL (2.3-3.5); Glucose 102 mg/dL (74-106); HDL Cholesterol 38 mg/dL (40-60); Magnesium 2.3 mg/dL (1.6-2.6); Osmolality,Calculated 289 (275-295); Phosphorous 3.5 mg/dL (2.4-5.1); Potassium 3.6 mMol/L (3.4-5.1); Sodium 144 mMol/L (136-145); Thyroid Stimulating Hormone 9.52 uIU/mL (0.55-4.78); Total Protein 5.9 gm/dL (5.7-8.2); Triglycerides 156 mg/dL (30-150); eGFR > 60 See Note
[2024-07-18] MEDS: POTASSIUM CHLORIDE 20 mEq TABCR 40 MEQ PO (08:31)
[2024-07-18] MEDS: APIXABAN 2.5 MG TABLET 5 MG PO ×2 (08:32→20:11)
[2024-07-18] MEDS: EZETIMIBE 10 MG TABLET PO (08:32)
[2024-07-18] MEDS: ASPIRIN EC 81 MG TABEC PO (08:32)
[2024-07-18] MEDS: POTASSIUM CHLORIDE 20 mEq TABCR PO (08:32)
--- NOTE | 2024-07-18 09:17 | ESPR_ITS ---
Documentation for date of: 07/18/24 Subjective Subjective Interval history: No acute overnight events. Telemetry reviewed, HR 110?130 overnight. HR continues to rise, 160?170 while she is talking when with minimal activity. Continued on DILTIAZEM 5 mg/HR, currently BP 109/83, HR 126. Remains asymptomatic without chest pain, shortness of breath or palpitations, no dizziness or lightheadedness. CMP and CMP relatively unchanged and stable. Will continue with DILTIAZEM 5 mg/hr, avoid antihypertensives. Goal is to increase SBP >120 so that she can tolerate higher doses of DILTIAZEM. We added DIGOXIN 0.25 mg q.6 hours for 1 day. Will reevaluate heart rate tomorrow. Also started LASIX 20 mg X1 for congestion seen on CXR, although no signs of fluid overload on exam. Exam Vital Signs Temp Pulse Resp BP Pulse Ox O2 Del Method 96.9 F 126 H 16 109/83 97 Room Air 07/18/24 08:00 07/18/24 08:00 07/18/24 08:00 07/18/24 08:00 07/18/24 08:00 07/18/24 08:00 Narrative Exam GENERAL * Normal appearing elderly female, NAD, satting well on room air. HEENT * NCAT.?LILY. Oral mucosa is moist. Patent Nares. Bilateral conjunctiva injection (chronic 2/2 allergies, per patient) NECK * Supple, nontender, no thyromegaly, no meningismus, no JVD, no step offs CHEST * Tachycardic, irregularly irregular rhythm, no m/g/r * CTAB, no w/r/r. Symmetrical chest rise. No intercostal subcostal retraction * Atraumatic, nontender, no crepitus, symmetrical expansion. ABDOMEN * Soft, flat, nontender. No guarding/rebound tenderness/masses. * Bowel sounds presents EXTREMITIES * No edema/cyanosis.? SKIN * Warm and dry, no jaundice/rashes. NEUROMUSCULAR * No lumbar or midline, no CVA, no paraspinal muscle spasm or tenderness. * Moves all 4 extremities well, with full ROM and good CSM. * SHAH x4, CN II-XII grossly intact. * No focal neurologic deficits. PSYCHIATRY * Normal mood and affect, cooperative, no SI or HI or hallucinations. Objective Labs 07/18/24 04:50 05/24/25 04:50 Labs: Laboratory Results - last 24 hr 07/17/24 07/17/24 07/18/24 12:18 13:55 04:50 WBC 16.2 H 10.8 D RBC 4.25 4.18 Hgb 13.7 13.4 Hct 40.2 39.8 MCV 95 95 MCH 32.2 32.1 MCHC 34.1 33.7 RDW Std Deviation 49.2 H 49.5 H Plt Count 347 289 D Neut % (Auto) 61 55 Lymph % (Auto) 29 35 [place] % (Auto) 8 7 Eos % (Auto) 0 1 Baso % (Auto) 1 1 Neut # (Auto) 10.0 H 5.9 Lymph # (Auto) 4.7 3.7 [place] # (Auto) 1.4 H 0.8 Eos # (Auto) 0.1 0.2 Baso # (Auto) 0.1 0.1 Immature Gran # (Auto) 0.09 H 0.06 H Absolute Nucleated RBC 0.00 0.00 Immature Gran % 1 H 1 H Nucleated RBC % 0 0 PT 11.3 INR 1.0 APTT 21.8 L Sodium 141 144 Potassium 3.8 3.6 Chloride 107 106 Carbon Dioxide 21.8 25.2 Anion Gap 12 13 BUN 22 21 Creatinine 1.0 0.9 Estim Creat Clear Calc 55.0 L 60.4 L eGFR > 60 > 60 BUN/Creatinine Ratio 22 H 23 H Glucose 123 H 102 Calculated Osmolality 285 289 Calcium 8.7 8.5 Corrected Calcium 8.7 8.7 Phosphorus 3.5 Magnesium 2.4 2.3 Total Bilirubin 0.7 0.6 AST 103 H 110 H ALT 265 H 281 H Alkaline Phosphatase 84 85 Troponin I < 0.020 B-Natriuretic Peptide 384 H Total Protein 6.3 5.9 Albumin 4.1 3.8 Globulin 2.2 L 2.1 L Albumin/Globulin Ratio 1.9 1.8 Triglycerides 156 H HDL Cholesterol 38 L TSH 9.52 H Ur Collection Type Clean Catch Urine Color Colorless A Urine Clarity Clear Urine pH 6.5 Ur Specific [place] 1.008 Urine Protein Negative Urine Glucose (UA) Negative Urine Ketones Negative Urine Blood Negative Urine Nitrite Negative Urine Bilirubin Negative Urine Urobilinogen (Auto) Negative Ur Leukocyte Esterase Positive Urine RBC 1 Urine WBC 3 Ur Squamous Epith Cells 1 Urine Bacteria None Hyaline Casts < 1 Quality Measures Quality Measures none Advance care planning discussed with:: patient Assessment & Plan Assessment Current Active Medications: Generic Name Dose Route Start Last Admin Trade Name Freq PRN Reason Stop Dose Admin Acetaminophen 650 mg 07/17/24 16:17 Acetaminophen 325 Mg Tablet PO 08/16/24 16:16 Q6H PRN PAIN 1-3 OR FEVER > 100.4 Albuterol 2 puff 07/17/24 16:45 Albuterol Inh 8 Gm INH 08/16/24 16:44 Q12H PRN SHORTNESS OF BREATH Apixaban 5 mg 07/17/24 21:00 07/18/24 08:32 Apixaban 2.5 Mg Tablet PO 08/16/24 20:59 5 mg BID MIKE Administration Aspirin 81 mg 07/18/24 09:00 07/18/24 08:32 Aspirin Ec 81 Mg Tabec PO 08/17/24 08:59 81 mg QDAY MIKE Administration Ezetimibe 10 mg 07/18/24 09:00 07/18/24 08:32 Ezetimibe 10 Mg Tablet PO 08/17/24 08:59 10 mg QDAY MIKE Administration Fluticasone Propionate 2 puff 07/17/24 16:45 07/17/24 16:57 Fluticasone 220 Mcg 12 Gm Inh INH 08/16/24 16:44 2 puff Q12HR MIKE Administration Diltiazem HCl 125 mg in 125 mls @ 5 mls/hr 07/17/24 12:24 07/18/24 05:26 Diltiazem In D5w 125 Mg IV 08/16/24 12:23 5 mg/hr .Q24H MIKE 5 mls/hr Titration Protocol 5 MG/HR Levothyroxine Sodium 50 mcg 07/18/24 06:00 07/18/24 05:24 Levothyroxine Sodium 25 Mcg Tablet PO 08/17/24 05:59 50 mcg ACBR MIKE Administration Ondansetron HCl 4 mg 07/17/24 16:17 Ondansetron Inj 2 Mg/Ml Inj 2 Ml IVP 08/16/24 16:16 Q6H PRN NAUSEA OR VOMITING Protocol Potassium Chloride 20 meq 07/18/24 09:00 07/18/24 08:32 Potassium Chloride 20 Meq Tabcr PO 08/17/24 08:59 20 meq QDAY MIKE Administration Plan This is a 63-year-old female with PMHx of CHF on DIURETICS and CARVEDILOL, breast cancer s/p right partial mastectomy, cardiomyopathy, HTN, asthma, hypothyroidism, 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 No known history of A-fib or arrhythmia, not on anticoagulation or rhythm/rate control. Admission EKG showed A-fib with RVR, HR 140s. Now on DILTIAZEM drip. BP on the softer side. HR remains uncontrolled. SOB likely related to A-fib with RVR. Otherwise she is hemodynamically stable, denies chest pain, shortness of breath, palpitations, satting well on room air. [id number] 7, HASBLED 3. TG 156, HDL 38, cholesterol and LDL are pending. TSH 9.2, free T4 pending. 07/18/2024 EKG this morning showed sinus rhythm, HR 76, nonspecific T wave abnormality, atrial fibrillation no longer present. Continued on DILTIAZEM g mg/hr. Overnight, HR max 130. Continues to have spikes in HR 170s when talking and with minimal activity. Goal is to improve blood pressure, SBP >120, in order to increase DILTIAZEM drip to 10 Mg/HR. Avoid ANTIHYPERTENSIVE for now. ? Maintain K > 4.0 and Mg > 2.0 ? Continue holding antihypertensives ? Continue DILTIAZEM at 5 mg/HR ? Started DIGOXIN Q6H for 1 day, will reevaluate dose tomorrow. ? Started LASIX 20 mg x 1 for congestion seen on CXR. ? Recommended ELIQUIS 5 mg BID ? Recommended at least moderate intensity STATIN, maybe higher depending on LDL (pending). ? Will follow-up with a free T4 ? Will follow-up with echocardiogram ? Will consider adding METOPROLOL if HR remains uncontrolled Hx CVA with residual left-sided deficit Family history of coagulopathy Head CT negative for acute pathology. History of hypercoagulability and several uncles, father passed of clotting disorder at the age of 46. Continue home ASPIRIN 81 mg daily Asthma No sign of asthma exacerbation Recommending discontinuing ALBUTEROL (or any beta agonists) if no wheezing. Hypothyroidism Continue home meds Management of rest of the medical conditions as per primary team and other consultants. Thank you for the consult and allowing me to participate in the care of the patient. Cardiology will continue to follow. Case was discussed with attending, Dr. Polanco. Jose Perez DO PGYI
--- NOTE | 2024-07-18 09:33 | XR_ITS ---
Examination: Abdomen sonogram, Limited Date and time of exam: July 18, 2024 1508 hrs. Indications: Elevated liver function tests on laboratory examination today Technique: Real-time martinez scale transabdominal sonographic images of the upper abdomen obtained. Findings: Normal gallbladder Normal common bile duct 0.34 cm Liver 15.4 cm fluid in the right abdomen no focal liver lesions Normal hepatopedal portal venous flow Patent IVC Impression: Normal gallbladder The technologist describes fluid in the abdomen, on the images this appears to be in the right pleural space, clinical correlation advised
--- NOTE | 2024-07-18 09:37 | PD.RESPRO ---
Documentation for date of: 07/18/24 Subjective Subjective Interval history: No acute overnight events. Seen and examined at bedside and patient heart rate noted to be in the 130s to 140s, remains on diltiazem drip at 5 mg/h. Heart rate appears to increase when patient is in conversation and remains in 110s when at rest. Albuterol inhaler discontinued per cardiology recommendations. Otherwise, patient denies palpitations, lightheadedness, chest pain, or shortness of breath at rest but does endorse dyspnea with exertion. TSH elevated at 9.5 and free T4 elevated at 1.9. K 3.6 and repleted with 40 mEq, Mg 2.3. WBC now within normal limits, leukocytosis suspect to be due to steroids. Exam Vital Signs Temp Pulse Resp BP Pulse Ox O2 Del Method 96.9 F 126 H 16 109/83 97 Room Air 07/18/24 08:00 07/18/24 08:00 07/18/24 08:00 07/18/24 08:00 07/18/24 08:00 07/18/24 08:00 Narrative Exam General: AOx3, no acute distress, able to speak full sentences HEENT: NC/AT, mucous membranes moist, bilateral sclera anicteric Cardiovascular: tachycardic, irregular, S1/S2 present, no murmurs appreciated Pulmonary: bibasilar crackles appreciated, no wheezing Abdominal: soft, non-tender, non-distended, no rebound/guarding, normal bowel sounds present Musculoskeletal: normal ROM, no peripheral edema Skin: warm and dry, intact, no rashes Neuro: CN II-XII intact, no focal deficits Objective Labs 07/18/24 04:50 07/18/24 04:50 Labs: Laboratory Results - last 24 hr 07/17/24 07/17/24 07/18/24 12:18 13:55 04:50 WBC 16.2 H 10.8 D RBC 4.25 4.18 Hgb 13.7 13.4 Hct 40.2 39.8 MCV 95 95 MCH 32.2 32.1 MCHC 34.1 33.7 RDW Std Deviation 49.2 H 49.5 H Plt Count 347 289 D Neut % (Auto) 61 55 Lymph % (Auto) 29 35 [place] % (Auto) 8 7 Eos % (Auto) 0 1 Baso % (Auto) 1 1 Neut # (Auto) 10.0 H 5.9 Lymph # (Auto) 4.7 3.7 [place]flower # (Auto) 1.4 H 0.8 Eos # (Auto) 0.1 0.2 Baso # (Auto) 0.1 0.1 Immature Gran # (Auto) 0.09 H 0.06 H Absolute Nucleated RBC 0.00 0.00 Immature Gran % 1 H 1 H Nucleated RBC % 0 0 PT 11.3 INR 1.0 APTT 21.8 L Sodium 141 144 Potassium 3.8 3.6 Chloride 107 106 Carbon Dioxide 21.8 25.2 Anion Gap 12 13 BUN 22 21 Creatinine 1.0 0.9 Estim Creat Clear Calc 55.0 L 60.4 L eGFR > 60 > 60 BUN/Creatinine Ratio 22 H 23 H Glucose 123 H 102 Calculated Osmolality 285 289 Calcium 8.7 8.5 Corrected Calcium 8.7 8.7 Phosphorus 3.5 Magnesium 2.4 2.3 Total Bilirubin 0.7 0.6 AST 103 H 110 H ALT 265 H 281 H Alkaline Phosphatase 84 85 Troponin I < 0.020 B-Natriuretic Peptide 384 H Total Protein 6.3 5.9 Albumin 4.1 3.8 Globulin 2.2 L 2.1 L Albumin/Globulin Ratio 1.9 1.8 Triglycerides 156 H HDL Cholesterol 38 L TSH 9.52 H Ur Collection Type Clean Catch Urine Color Colorless A Urine Clarity Clear Urine pH 6.5 Ur Specific Dunbar 1.008 Urine Protein Negative Urine Glucose (UA) Negative Urine Ketones Negative Urine Blood Negative Urine Nitrite Negative Urine Bilirubin Negative Urine Urobilinogen (Auto) Negative Ur Leukocyte Esterase Positive Urine RBC 1 Urine WBC 3 Ur Squamous Epith Cells 1 Urine Bacteria None Hyaline Casts < 1 Quality Measures Quality Measures none Advance care planning discussed with:: patient Assessment & Plan Assessment Current Active Medications: Generic Name Dose Route Start Last Admin Trade Name Freq PRN Reason Stop Dose Admin Acetaminophen 650 mg 07/17/24 16:17 Acetaminophen 325 Mg Tablet PO 08/16/24 16:16 Q6H PRN PAIN 1-3 OR FEVER > 100.4 Apixaban 5 mg 07/17/24 21:00 07/18/24 08:32 Apixaban 2.5 Mg Tablet PO 08/16/24 20:59 5 mg BID MIKE Administration Aspirin 81 mg 07/18/24 09:00 07/18/24 08:32 Aspirin Ec 81 Mg Tabec PO 08/17/24 08:59 81 mg QDAY MIKE Administration Ezetimibe 10 mg 07/18/24 09:00 07/18/24 08:32 Ezetimibe 10 Mg Tablet PO 08/17/24 08:59 10 mg QDAY MIKE Administration Fluticasone Propionate 2 puff 07/17/24 16:45 07/17/24 16:57 Fluticasone 220 Mcg 12 Gm Inh INH 08/16/24 16:44 2 puff Q12HR MIKE Administration Diltiazem HCl 125 mg in 125 mls @ 5 mls/hr 07/17/24 12:24 07/18/24 05:26 Diltiazem In D5w 125 Mg IV 08/16/24 12:23 5 mg/hr .Q24H MIKE 5 mls/hr Titration Protocol 5 MG/HR Levothyroxine Sodium 50 mcg 07/18/24 06:00 07/18/24 05:24 Levothyroxine Sodium 25 Mcg Tablet PO 08/17/24 05:59 50 mcg ACBR MIKE Administration Ondansetron HCl 4 mg 07/17/24 16:17 Ondansetron Inj 2 Mg/Ml Inj 2 Ml IVP 08/16/24 16:16 Q6H PRN NAUSEA OR VOMITING Protocol Potassium Chloride 20 meq 07/18/24 09:00 07/18/24 08:32 Potassium Chloride 20 Meq Tabcr PO 08/17/24 08:59 20 meq QDAY MIKE Administration Plan Florecita Farrar is a 63-year-old female with past medical history of 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 #New onset atrial fibrillation with RVR Presents with shortness of breath that started 4 to 5 days ago. Denies palpitations, chest pain, lightheadedness or previous episodes of a-fib with RVR. ? Cardiology consulted, appreciate recommendations ? Diltiazem drip ? Hold other antihypertensive medications ? Eliquis 5 mg p.o. BID ? Keep Mg > 2 and K > 4 at all times #History of CHF #History of cardiomyopathy Follows-up with kiln labourer in [place], unsure if HFpEF or HFrEF and no records here. ? Cardiology consulted as above ? Echo pending ? Coreg held ? Torsemide 20 mg p.o. daily held #History of CVA with left-sided deficits ? Aspirin 81 mg daily #Hypertension ? Holding antihypertensives for now per cardiology recommendations #Asthma ? Albuterol inhaler DC'd ? Fluticasone inhaler #Hypothyroidism TSH elevated at 9.5, free T4 elevated at 1.9. ? Levothyroxine decreased from 50 to 25 mcg p.o. [facility] Hospital management: Disposition: a-fib with RVR on diltiazem drip Diet: cardiac Lines: PIV DVT prophylaxis: SCDs CODE STATUS: full code ----- Plan discussed with attending physician Dr. Jazlyn Townsend MD PGY-1 Internal Medicine Attending Provider Attestation/Addendum I attest that I was physically present for the evaluation, physical examination, lab and imaging review of the patient with the residents. I discussed the case with the residents and agree with the findings and plans of care as documented above. At bedside today, patient states he is feeling well and does not have any complaints., Shortness of breath, palpitations. Continues to be on Cardizem drip and Eliquis. Cardiology following closely, appreciate recommendations. Heart rate has been around 100s most of the time but goes up to 130s occasionally. We will continue to monitor her closely and await on echocardiography results. Pretty Hobson MD
[2024-07-18 10:52] LABS: Cardiac Risk Estimate 3.8 RATIO (3.7-5.6); Cholesterol 146 mg/dL (132-200); Free T4 (Free Thyroxine) 1.92 ng/dL (0.89-1.76); LDL Cholesterol,Calculated 77 mg/dL (0-130)
--- NOTE | 2024-07-18 11:16 | PC.SS ---
Initial assessment completed with with patient at bedside. Patient confirmed her demographic information. Patient resides in a home with her spouse. Patient?s surrogate medical decisionmaker is her spouse, Louie Farrar [phone]. Patient is independent with ADL completion. Patient utilizes cane for ambulation. Preferred pharmacy: [facility]. PCP: Valeri Brothers, pending appointment 07/22/24. Next of Kin: Spouse, Louie Farrar [phone] D/C Plan: Home, spouse to provide transportation
[2024-07-18] MEDS: DILTIAZEM in D5W 125 MG 125 MG/125 ML BAG IV (12:22)
[2024-07-18] MEDS: DIGOXIN 0.125 MG TABLET 0.25 MG PO ×2 (14:52→19:38)
[2024-07-18] MEDS: ALLEGRA 180 MG TABLET PO (19:23)
[2024-07-18] MEDS: FUROSEMIDE INJ 10 MG/ML 4ML VIAL 20 MG IVP (20:12)
--- NOTE | 2024-07-18 22:40 | PC.NURSE ---
PT O2 ON ROOM AIR AT 85%. NO SIGNS OF RESPIRATORY DISTRESS. PT WITH EYES CLOSED WITH RES EVEN, UNLABORED. PLACED 2L NC. O2 UP TO 94%.
[2024-07-19] VITALS (18 sets, daily range): BP systolic 90–125; BP diastolic 54–90; PULSE 80–123; RESP 14–100; TEMP 36.3–36.9; O2SAT 93–100
[2024-07-19] MEDS: DIGOXIN 0.125 MG TABLET 0.25 MG PO ×2 (01:47→08:38)
[2024-07-19] MEDS: LEVOTHYROXINE SODIUM 25 MCG TABLET PO (05:12)
[2024-07-19 06:02] LABS: Basophils # (Auto) 0.1 Thou/mm3 (0.0-0.2); Basophils % (Auto) 1 % (0-2.5); Eosinophils # (Auto) 0.2 Thou/mm3 (0.0-0.5); Eosinophils % (Auto) 2 % (0-10); Hemoglobin 14.2 g/dL (12.0-16.0); Immature Granulocytes % (Auto) 1 % (0-0); Immature Granulocytes Auto 0.09 Thou/mm3 (0.00-0.00); Lymphocytes # (Auto) 3.1 Thou/mm3 (1.0-4.8); Lymphocytes % (Auto) 27 % (10-50); Mean Corpuscular HGB Conc 33.8 g/dl (31.0-37.0); Mean Corpuscular Hemoglobin 32.2 pg (25.0-35.0); Mean Corpuscular Volume 95 fL (80-100); Monocytes % (Auto) 8 % (0-12); Neutrophils # (Auto) 7.1 Thou/mm3 (1.8-7.7); Neutrophils % (Auto) 61 % (37-80); Nucleated Red Blood Cell % 0 /100 WBC (0); Platelet Count 317 Thou/mm3 (140-440); RDW Standard Deviation 49.6 fL (36.4-46.3); Red Blood Count 4.41 Miln/mm3 (4.00-5.20); White Blood Count 11.6 Thou/mm3 (3.6-11.0)
[2024-07-19 06:15] LABS: Alanine Aminotransferase 257 U/L (10-49); Albumin, Serum 3.8 gm/dL (3.4-4.8); Albumin/Globulin Ratio 1.7 (1.2-2.2); Alkaline Phosphatase 94 U/L (46-116); Anion Gap 11 (7-16); Aspartate Amino Transferase 71 U/L (0-34); BUN/Creatinine Ratio 21 Ratio (12-20); Bilirubin,Total 0.8 mg/dL (0.3-1.2); Blood Urea Nitrogen 15 mg/dL (9-23); Calcium 8.6 mg/dL (8.3-10.6); Calcium (Corrected) 8.8 mg/dL (8.5-10.1); Carbon Dioxide 25.1 mMol/L (20.0-31.0); Chloride 109 mMol/L (98-107); Creatinine (Component) 0.7 mg/dL (0.6-1.3); Estimated Creatinine Clearance 76.8 mL/min (>60); Globulin 2.3 gm/dL (2.3-3.5); Glucose 92 mg/dL (74-106); Magnesium 2.4 mg/dL (1.6-2.6); Osmolality,Calculated 289 (275-295); Phosphorous 3.3 mg/dL (2.4-5.1); Potassium 3.7 mMol/L (3.4-5.1); Sodium 145 mMol/L (136-145); Total Protein 6.1 gm/dL (5.7-8.2); eGFR > 60 See Note
--- NOTE | 2024-07-19 07:57 | XR_ITS ---
Examination: AP chest single view Technique one AP portable semiupright chest single view Date and time: July 19, 2024 0817 hrs. Comparison July 17, 2024 Indications: Shortness of breath this week. Findings: Mild CHF Mild enlargement cardiac contour Prominent vascular congestion with perihilar and basilar septal edema Moderate osteopenia Impression: Mild CHF
--- NOTE | 2024-07-19 08:02 | ESPR_ITS ---
Documentation for date of: 07/19/24 Subjective Subjective Interval history: No acute overnight events. Seen and examined at bedside and patient continues to deny any chest pain, palpitations, or shortness of breath. She was temporarily on 2 L NC due to her saturating at 94% but upon evaluation she was saturating well on room air. Heart rate continues to fluctuate between 90s and 120s on diltiazem drip and digoxin. Pending further recommendations from cardiology at this time as well as echo read. Otherwise, K 3.7 and repleted, Mg > 2. Abdominal US showed normal gallbladder in setting of elevated AST and ALT but are now downtrending. Exam Vital Signs Temp Pulse Resp BP Pulse Ox O2 Del Method O2 Flow Rate 98.0 F 112 H 14 113/81 99 Nasal Cannula 2 07/19/24 04:00 07/19/24 07:30 07/19/24 07:16 07/19/24 04:00 07/19/24 07:16 07/19/24 04:00 07/19/24 07:16 Narrative Exam General: AOx3, no acute distress, able to speak full sentences HEENT: NC/AT, mucous membranes moist, bilateral sclera anicteric Cardiovascular: tachycardic, irregular, S1/S2 present, no murmurs appreciated Pulmonary: no wheezing or crackles appreciated on exam Abdominal: soft, non-tender, non-distended, no rebound/guarding, normal bowel sounds present Musculoskeletal: trace bilateral lower extremity edema, normal ROM Skin: warm and dry, intact, no rashes Neuro: CN II-XII intact, no focal deficits Objective Labs 07/19/24 05:10 07/19/24 05:10 Labs: Laboratory Results - last 24 hr 07/18/24 07/19/24 04:50 05:10 WBC 11.6 H RBC 4.41 Hgb 14.2 Hct 42.0 MCV 95 MCH 32.2 MCHC 33.8 RDW Std Deviation 49.6 H Plt Count 317 Neut % (Auto) 61 Lymph % (Auto) 27 [place] % (Auto) 8 Eos % (Auto) 2 Baso % (Auto) 1 Neut # (Auto) 7.1 Lymph # (Auto) 3.1 [place] # (Auto) 1.0 H Eos # (Auto) 0.2 Baso # (Auto) 0.1 Immature Gran # (Auto) 0.09 H Absolute Nucleated RBC 0.00 Immature Gran % 1 H Nucleated RBC % 0 Sodium 145 Potassium 3.7 Chloride 109 H Carbon Dioxide 25.1 Anion Gap 11 BUN 15 Creatinine 0.7 Estim Creat Clear Calc 76.8 eGFR > 60 BUN/Creatinine Ratio 21 H Glucose 92 Calculated Osmolality 289 Calcium 8.6 Corrected Calcium 8.8 Phosphorus 3.3 Magnesium 2.4 Total Bilirubin 0.8 AST 71 H ALT 257 H Alkaline Phosphatase 94 Total Protein 6.1 Albumin 3.8 Globulin 2.3 Albumin/Globulin Ratio 1.7 Cholesterol 146 LDL Cholesterol, Calc 77 Cholesterol/HDL Ratio 3.8 Free T4 1.92 H Quality Measures Quality Measures none Advance care planning discussed with:: patient Assessment & Plan Assessment Current Active Medications: Generic Name Dose Route Start Last Admin Trade Name Freq PRN Reason Stop Dose Admin Acetaminophen 650 mg 07/17/24 16:17 Acetaminophen 325 Mg Tablet PO 08/16/24 16:16 Q6H PRN PAIN 1-3 OR FEVER > 100.4 Apixaban 5 mg 07/17/24 21:00 07/18/24 20:11 Apixaban 2.5 Mg Tablet PO 08/16/24 20:59 5 mg BID MIKE Administration Aspirin 81 mg 07/18/24 09:00 07/18/24 08:32 Aspirin Ec 81 Mg Tabec PO 08/17/24 08:59 81 mg QDAY MIKE Administration Yadira 180 Mg 0 ea 07/18/24 19:00 07/18/24 19:23 Tablet PO 08/17/24 18:59 1 tablet QDAY MIKE Administration Digoxin 0.25 mg 07/18/24 14:00 07/19/24 01:47 Digoxin 0.125 Mg Tablet PO 07/19/24 13:59 0.25 mg Q6H MIKE Administration Ezetimibe 10 mg 07/18/24 09:00 07/18/24 08:32 Ezetimibe 10 Mg Tablet PO 08/17/24 08:59 10 mg QDAY MIKE Administration Fluticasone Propionate 2 puff 07/17/24 16:45 07/17/24 16:57 Fluticasone 220 Mcg 12 Gm Inh INH 08/16/24 16:44 2 puff Q12HR MIKE Administration Furosemide 40 mg 07/19/24 09:00 Furosemide Inj 10 Mg/Ml 4ml Vial IVP 08/18/24 08:59 QDAY MIKE Diltiazem HCl 125 mg in 125 mls @ 5 mls/hr 07/17/24 12:24 07/18/24 12:22 Diltiazem In D5w 125 Mg IV 08/16/24 12:23 5 mg/hr .Q24H MIKE 5 mls/hr Administration Protocol 5 MG/HR Levothyroxine Sodium 25 mcg 07/19/24 06:00 07/19/24 05:12 Levothyroxine Sodium 25 Mcg Tablet PO 08/18/24 05:59 25 mcg ACBR MIKE Administration Ondansetron HCl 4 mg 07/17/24 16:17 Ondansetron Inj 2 Mg/Ml Inj 2 Ml IVP 08/16/24 16:16 Q6H PRN NAUSEA OR VOMITING Protocol Potassium Chloride 20 meq 07/18/24 09:00 07/18/24 08:32 Potassium Chloride 20 Meq Tabcr PO 08/17/24 08:59 20 meq QDAY MIKE Administration Plan Florecita Farrar is a 63-year-old female with 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 #New onset atrial fibrillation with RVR Presents with shortness of breath that started 4 to 5 days ago. Denies palpitations, chest pain, lightheadedness or previous episodes of a-fib with RVR. ? Cardiology consulted, appreciate recommendations ? Diltiazem drip and digoxin ? Hold other antihypertensive medications ? Eliquis 5 mg p.o. BID ? Keep Mg > 2 and K > 4 at all times #History of CHF #History of cardiomyopathy Follows-up with communications attendant in [place], unsure if HFpEF or HFrEF and no records here. ? Cardiology consulted as above ? Echo pending ? Coreg held ? Torsemide 20 mg p.o. daily held ? Started on lasix 40 mg IV daily #History of CVA with left-sided deficits ? Aspirin 81 mg daily #Hypertension ? Holding antihypertensives for now per cardiology recommendations #Asthma ? Albuterol inhaler DC'd ? Fluticasone inhaler #Hypothyroidism TSH elevated at 9.5, free T4 elevated at 1.9. ? Levothyroxine decreased from 50 to 25 mcg p.o. [facility] Hospital management: Disposition: a-fib with RVR on diltiazem drip and digoxin Diet: cardiac Lines: PIV DVT prophylaxis: SCDs, eliquis 5 mg p.o. BID CODE STATUS: full code ----- Plan discussed with attending physician Dr. Jazlyn Townsend MD PGY-1 Internal Medicine Attending Provider Attestation/Addendum I attest that I was physically present for the evaluation, physical examination, lab and imaging review of the patient with the residents. I discussed the case with the residents and agree with the findings and plans of care as documented above. At bedside today, patient continues to feel comfortable. She was short of breath temporarily, stated that patient did not receive her inhalers last night. At the time of exam, patient was back to room air, saturating well. Denied any shortness of breath, chest pain or palpitations. Heart rate continues to be around 90s to 120s. Continues to be on diltiazem drip, was started on digoxin with cardiology, appreciate recommendations. Rest of the vitals were within normal limits. WBC today is 11.6, patient did not have any fever or any other signs of infection. Potassium was 3.7 this morning, repleted accordingly. Liver panel is improving, liver ultrasound yesterday did not show liver pathology. We will continue to monitor closely and adjust her antiarrhythmics as recommended by cardiology. Continues to be on Eliquis. Started on Lasix 40 mg IV daily. Awaiting echocardiography. Pretty Hobson MD
[2024-07-19] MEDS: ALLEGRA 180 MG TABLET PO (08:37)
[2024-07-19] MEDS: POTASSIUM CHLORIDE 20 mEq TABCR 40 MEQ PO (08:39)
[2024-07-19] MEDS: APIXABAN 2.5 MG TABLET 5 MG PO ×2 (08:39→21:28)
[2024-07-19] MEDS: EZETIMIBE 10 MG TABLET PO (08:39)
[2024-07-19] MEDS: ASPIRIN EC 81 MG TABEC PO (08:39)
[2024-07-19] MEDS: FUROSEMIDE INJ 10 MG/ML 4ML VIAL 40 MG IVP (08:41)
[2024-07-19] MEDS: FLUTICASONE 220 MCG 2 PUFF INH ×2 (09:16→21:14)
--- NOTE | 2024-07-19 09:41 | ESPR_ITS ---
Documentation for date of: 07/19/24 Subjective Subjective Interval history: No acute overnight events. Patient feeling better today. Denies fever, chills, headaches, chest pain, sob, cough, GI or urinary symptoms. BP 106/75 continued on DILTIAZEM 5 mg/HR, received 3 doses of DIGOXIN 0.25 mg, HR improved, although continues to have spikes of tachycardia 130s, appears AFIB on tele, gain rising with minimal exertion activity. Will order EKG today. Will start on DIGOXIN 0.25 mg daily. Added METOPROLOL tartrate 25 mg daily, my add another METOPROLOL 25 mg this evening if HR remains elevated and BP tolerates. Discontinue DILTIAZIM drip 6 hours from now (at 6PM 07/19). Switch to METOPROLOL XL tomorrow once dose is finalized. We may consider starting AMIODARONE if HR remains uncontrolled. Exam Vital Signs Temp Pulse Resp BP Pulse Ox O2 Del Method O2 Flow Rate 97.8 F 108 H 18 106/75 99 Nasal Cannula 2 07/19/24 08:00 07/19/24 09:16 07/19/24 09:16 07/19/24 08:41 07/19/24 09:16 07/19/24 08:00 07/19/24 08:00 Narrative Exam GENERAL * Normal appearing elderly female, NAD, satting well on room air. HEENT * NCAT.?LILY. Oral mucosa is moist. Patent Nares. Bilateral conjunctiva injection (chronic 2/2 allergies, per patient) NECK * Supple, nontender, no thyromegaly, no meningismus, no JVD, no step offs CHEST * Tachycardic, irregularly irregular rhythm, no m/g/r * CTAB, no w/r/r. Symmetrical chest rise. No intercostal subcostal retraction * Atraumatic, nontender, no crepitus, symmetrical expansion. ABDOMEN * Soft, flat, nontender. No guarding/rebound tenderness/masses. * Bowel sounds presents EXTREMITIES * No edema/cyanosis.? SKIN * Warm and dry, no jaundice/rashes. NEUROMUSCULAR * No lumbar or midline, no CVA, no paraspinal muscle spasm or tenderness. * Moves all 4 extremities well, with full ROM and good CSM. * SHAH x4, CN II-XII grossly intact. * No focal neurologic deficits. PSYCHIATRY * Normal mood and affect, cooperative, no SI or HI or hallucinations. Objective Labs 07/19/24 05:10 07/19/24 05:10 Labs: Laboratory Results - last 24 hr 07/18/24 07/19/24 04:50 05:10 WBC 11.6 H RBC 4.41 Hgb 14.2 Hct 42.0 MCV 95 MCH 32.2 MCHC 33.8 RDW Std Deviation 49.6 H Plt Count 317 Neut % (Auto) 61 Lymph % (Auto) 27 [place] % (Auto) 8 Eos % (Auto) 2 Baso % (Auto) 1 Neut # (Auto) 7.1 Lymph # (Auto) 3.1 [place] # (Auto) 1.0 H Eos # (Auto) 0.2 Baso # (Auto) 0.1 Immature Gran # (Auto) 0.09 H Absolute Nucleated RBC 0.00 Immature Gran % 1 H Nucleated RBC % 0 Sodium 145 Potassium 3.7 Chloride 109 H Carbon Dioxide 25.1 Anion Gap 11 BUN 15 Creatinine 0.7 Estim Creat Clear Calc 76.8 eGFR > 60 BUN/Creatinine Ratio 21 H Glucose 92 Calculated Osmolality 289 Calcium 8.6 Corrected Calcium 8.8 Phosphorus 3.3 Magnesium 2.4 Total Bilirubin 0.8 AST 71 H ALT 257 H Alkaline Phosphatase 94 Total Protein 6.1 Albumin 3.8 Globulin 2.3 Albumin/Globulin Ratio 1.7 Cholesterol 146 LDL Cholesterol, Calc 77 Cholesterol/HDL Ratio 3.8 Free T4 1.92 H Quality Measures Quality Measures none Advance care planning discussed with:: patient Assessment & Plan Assessment Current Active Medications: Generic Name Dose Route Start Last Admin Trade Name Albina PRN Reason Stop Dose Admin Acetaminophen 650 mg 07/17/24 16:17 Acetaminophen 325 Mg Tablet PO 08/16/24 16:16 Q6H PRN PAIN 1-3 OR FEVER > 100.4 Apixaban 5 mg 07/17/24 21:00 07/19/24 08:39 Apixaban 2.5 Mg Tablet PO 08/16/24 20:59 5 mg BID MIKE Administration Aspirin 81 mg 07/18/24 09:00 07/19/24 08:39 Aspirin Ec 81 Mg Tabec PO 08/17/24 08:59 81 mg QDAY MIKE Administration Yadira 180 Mg 0 ea 07/18/24 19:00 07/19/24 08:37 Tablet PO 08/17/24 18:59 1 tablet QDAY MIKE Administration Digoxin 0.25 mg 07/18/24 14:00 07/19/24 08:38 Digoxin 0.125 Mg Tablet PO 07/19/24 13:59 0.25 mg Q6H MIKE Administration Ezetimibe 10 mg 07/18/24 09:00 07/19/24 08:39 Ezetimibe 10 Mg Tablet PO 08/17/24 08:59 10 mg QDAY MIKE Administration Fluticasone Propionate 2 puff 07/17/24 16:45 07/19/24 09:16 Fluticasone 220 Mcg 12 Gm Inh INH 08/16/24 16:44 2 puff Q12HR MIKE Administration Furosemide 40 mg 07/19/24 09:00 07/19/24 08:41 Furosemide Inj 10 Mg/Ml 4ml Vial IVP 08/18/24 08:59 40 mg QDAY MIKE Administration Diltiazem HCl 125 mg in 125 mls @ 5 mls/hr 07/17/24 12:24 07/18/24 12:22 Diltiazem In D5w 125 Mg IV 08/16/24 12:23 5 mg/hr .Q24H MIKE 5 mls/hr Administration Protocol 5 MG/HR Levothyroxine Sodium 25 mcg 07/19/24 06:00 07/19/24 05:12 Levothyroxine Sodium 25 Mcg Tablet PO 08/18/24 05:59 25 mcg ACBR MIKE Administration Ondansetron HCl 4 mg 07/17/24 16:17 Ondansetron Inj 2 Mg/Ml Inj 2 Ml IVP 08/16/24 16:16 Q6H PRN NAUSEA OR VOMITING Protocol Potassium Chloride 20 meq 07/18/24 09:00 07/19/24 08:40 Potassium Chloride 20 Meq Tabcr PO 08/17/24 08:59 Not Given QDAY MIKE Plan This is a 63-year-old female with PMHx of CHF on DIURETICS and CARVEDILOL, breast cancer s/p right partial mastectomy, cardiomyopathy, HTN, asthma, hypothyroidism, 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 No known history of A-fib or arrhythmia, not on anticoagulation or rhythm/rate control. Admission EKG showed A-fib with RVR, HR 140s. Now on DILTIAZEM drip. BP on the softer side. HR remains uncontrolled. SOB likely related to A-fib with RVR. Otherwise she is hemodynamically stable, denies chest pain, shortness of breath, palpitations, satting well on room air. [id number] 7, HASBLED 3. TG 156, HDL 38, cholesterol 146, LDL 77 TSH 9.2, free T4 1.92, primary team decreased home LEVOTHYROXINE dose appropriately. 07/18/2024 EKG this morning showed sinus rhythm, HR 76, nonspecific T wave abnormality, atrial fibrillation no longer present. Continued on DILTIAZEM g mg/hr. Overnight, HR max 130. Continues to have spikes in HR 170s when talking and with minimal activity. 07/19/2024 On DILTIAZEM 5 mg/HR and DIGOXIN 0.5 mg Q6H, HR slightly better, although remains tachycardic in 130s, spiked occurring with minimal activities again, tele showing A-fib. Goal is to improve blood pressure, SBP >120, in order to increase DILTIAZEM drip to 10 Mg/HR. Avoid ANTIHYPERTENSIVE for now. Ordered repeat EKG today. Added METOPROLOL tartrate 25 mg daily, may givr another METOPROLOL 25 mg this evening if HR remains elevated and BP tolerates. Discontinue DILTIAZIM drip 6 hours from now (at 6PM 07/19). Switch to METOPROLOL XL tomorrow once dose is finalized. We may consider starting AMIODARONE if HR remains uncontrolled. ? Maintain K > 4.0 and Mg > 2.0 ? Continue holding antihypertensives ? To discontinue DILTIAZEM ggt at 6PM today 07/19/24 ? Started DIGOXIN 0.25 mg daily ? Continue ELIQUIS 5 mg BID ? Recommended at least moderate intensity STATIN ? Will follow-up with echocardiogram ? Will consider adding AMIODARONE if HR remains uncontrolled Hx CVA with residual left-sided deficit Family history of coagulopathy Head CT negative for acute pathology. History of hypercoagulability and several uncles, father passed of clotting disorder at the age of 46. Continue home ASPIRIN 81 mg daily Transient transaminase She had slight bump in LFTs, which appears to be improving, AST 110 > 71, ALT 281 > 257, ALP normal. Liver ultrasound showed 15.4 cm fluid around the liver, no focal liver lesion. Asthma No sign of asthma exacerbation ALBUTEROL was discontinued 2/2 beta agonism, denies wheezing or shortness of breath. May not need ALBUTEROL on discharge, recommended alternative such as [place] to be discussed with PCP. Hypothyroidism TSH 9.2, free T4 1.92, primary team decreased home LEVOTHYROXINE dose appropriately. Management of rest of the medical conditions as per primary team and other consultants. Thank you for the consult and allowing me to participate in the care of the patient. Cardiology will continue to follow. Case was discussed with attending, Dr. Polanco. Jose Perez DO PGYI
--- NOTE | 2024-07-19 09:45 | EKG_ITS ---
[facility] Test Date: 2024-07-19 Pat Name: BISMARK PINTO [facility] Female Radiator Core Tester: KARRIE : 1960 Requested By: Jose Perez Order Number: [id number] Reading MD: Jose Perez Measurements Intervals [place] Rate: 82 P: [place]: QRS: 48 QRSD: 83 T: 29 QT: 365 QTc: 427 Interpretive Statements ATRIAL FIBRILLATION NONSPECIFIC ST & T-WAVE ABNORMALITY ABNORMAL RHYTHM ECG Compared to ECG 07/18/2024 07:17:00 Sinus rhythm no longer present T-wave abnormality still present /store/S0/[id number]
[2024-07-19] MEDS: METOPROLOL TARTRATE 25 MG TABLET PO ×2 (12:42→18:16)
[2024-07-19] MEDS: DILTIAZEM in D5W 125 MG 125 MG/125 ML BAG IV (12:48)
[2024-07-20] VITALS (12 sets, daily range): BP systolic 111–127; BP diastolic 62–84; PULSE 84–115; RESP 15–98; TEMP 36.1–36.9; O2SAT 96–100; BMI 28.8
[2024-07-20] MEDS: LEVOTHYROXINE SODIUM 25 MCG TABLET PO (05:29)
[2024-07-20 06:39] LABS: Basophils # (Auto) 0.1 Thou/mm3 (0.0-0.2); Basophils % (Auto) 1 % (0-2.5); Eosinophils # (Auto) 0.3 Thou/mm3 (0.0-0.5); Eosinophils % (Auto) 2 % (0-10); Hematocrit 45.2 % (36.0-46.0); Hemoglobin 15.3 g/dL (12.0-16.0); Immature Granulocytes % (Auto) 1 % (0-0); Immature Granulocytes Auto 0.12 Thou/mm3 (0.00-0.00); Lymphocytes # (Auto) 2.6 Thou/mm3 (1.0-4.8); Lymphocytes % (Auto) 22 % (10-50); Mean Corpuscular HGB Conc 33.8 g/dl (31.0-37.0); Mean Corpuscular Hemoglobin 32.2 pg (25.0-35.0); Mean Corpuscular Volume 95 fL (80-100); Monocytes % (Auto) 8 % (0-12); Neutrophils # (Auto) 7.8 Thou/mm3 (1.8-7.7); Neutrophils % (Auto) 66 % (37-80); Nucleated Red Blood Cell % 0 /100 WBC (0); Platelet Count 318 Thou/mm3 (140-440); Red Blood Count 4.75 Miln/mm3 (4.00-5.20); White Blood Count 11.9 Thou/mm3 (3.6-11.0)
[2024-07-20] MEDS: FLUTICASONE 220 MCG 2 PUFF INH ×2 (06:51→19:51)
[2024-07-20 07:12] LABS: Alanine Aminotransferase 250 U/L (10-49); Alkaline Phosphatase 105 U/L (46-116); Anion Gap 12 (7-16); Aspartate Amino Transferase 61 U/L (0-34); BUN/Creatinine Ratio 19 Ratio (12-20); Bilirubin,Total 0.8 mg/dL (0.3-1.2); Blood Urea Nitrogen 15 mg/dL (9-23); Calcium 8.8 mg/dL (8.3-10.6); Calcium (Corrected) 8.8 mg/dL (8.5-10.1); Carbon Dioxide 23.9 mMol/L (20.0-31.0); Chloride 109 mMol/L (98-107); Creatinine (Component) 0.8 mg/dL (0.6-1.3); Estimated Creatinine Clearance 67.4 mL/min (>60); Glucose 95 mg/dL (74-106); Magnesium 2.4 mg/dL (1.6-2.6); Osmolality,Calculated 289 (275-295); Phosphorous 3.6 mg/dL (2.4-5.1); Potassium 4.1 mMol/L (3.4-5.1); Sodium 145 mMol/L (136-145); eGFR > 60 See Note
[2024-07-20] MEDS: ALLEGRA 180 MG TABLET PO (08:37)
[2024-07-20] MEDS: FUROSEMIDE INJ 10 MG/ML 4ML VIAL 40 MG IVP (08:37)
[2024-07-20] MEDS: DIGOXIN 0.125 MG TABLET 0.25 MG PO (08:38)
[2024-07-20] MEDS: APIXABAN 2.5 MG TABLET 5 MG PO ×2 (08:38→20:34)
[2024-07-20] MEDS: ASPIRIN EC 81 MG TABEC PO (08:38)
[2024-07-20] MEDS: POTASSIUM CHLORIDE 20 mEq TABCR PO (08:38)
[2024-07-20] MEDS: METOPROLOL SUCCINATE XL 25 MG TABCR PO ×2 (08:39→12:37)
[2024-07-20] MEDS: EZETIMIBE 10 MG TABLET PO (08:39)
--- NOTE | 2024-07-20 11:17 | PD.RESPRO ---
Documentation for date of: 07/20/24 Subjective Subjective Interval history: No acute overnight events. Seen and examined at bedside and patient states she had mild dyspnea on exertion when walking to the restroom and occasional palpitations but denies any chest pain. On telemetry, HR range between 90s-110s and blood pressure ranges 110s-120s/70s-80s. Spoke to ware tester and prelim read for echo showed EF ~35% and dilated LV, LA, and RA and thus will stop diltiazem drip, keep digoxin, and increase metoprolol succinate to 50 mg daily and continue to monitor. Exam Vital Signs Temp Pulse Resp BP Pulse Ox O2 Del Method O2 Flow Rate 98.5 F 99 15 111/81 100 Room Air 2 07/20/24 08:00 07/20/24 08:39 07/20/24 08:00 07/20/24 08:39 07/20/24 08:00 07/20/24 08:00 07/19/24 16:00 Narrative Exam General: AOx3, no acute distress, able to speak full sentences HEENT: NC/AT, mucous membranes moist, bilateral sclera anicteric Cardiovascular: tachycardic, irregular, S1/S2 present, no murmurs appreciated Pulmonary: no wheezing or crackles appreciated on exam Abdominal: soft, non-tender, non-distended, no rebound/guarding, normal bowel sounds present Musculoskeletal: trace bilateral lower extremity edema, normal ROM Skin: warm and dry, intact, no rashes Neuro: CN II-XII intact, no focal deficits Objective Labs 07/20/24 05:24 07/20/24 05:24 Labs: Laboratory Results - last 24 hr 07/20/24 05:24 WBC 11.9 H RBC 4.75 Hgb 15.3 Hct 45.2 MCV 95 MCH 32.2 MCHC 33.8 RDW Std Deviation 49.0 H Plt Count 318 Neut % (Auto) 66 Lymph % (Auto) 22 [place] % (Auto) 8 Eos % (Auto) 2 Baso % (Auto) 1 Neut # (Auto) 7.8 H Lymph # (Auto) 2.6 [place] # (Auto) 1.0 H Eos # (Auto) 0.3 Baso # (Auto) 0.1 Immature Gran # (Auto) 0.12 H Absolute Nucleated RBC 0.00 Immature Gran % 1 H Nucleated RBC % 0 Sodium 145 Potassium 4.1 Chloride 109 H Carbon Dioxide 23.9 Anion Gap 12 BUN 15 Creatinine 0.8 Estim Creat Clear Calc 67.4 eGFR > 60 BUN/Creatinine Ratio 19 Glucose 95 Calculated Osmolality 289 Calcium 8.8 Corrected Calcium 8.8 Phosphorus 3.6 Magnesium 2.4 Total Bilirubin 0.8 AST 61 H ALT 250 H Alkaline Phosphatase 105 Total Protein 6.0 Albumin 4.0 Globulin 2.0 L Albumin/Globulin Ratio 2.0 Quality Measures Quality Measures none Advance care planning discussed with:: patient Assessment & Plan Assessment Current Active Medications: Generic Name Dose Route Start Last Admin Trade Name Freq PRN Reason Stop Dose Admin Acetaminophen 650 mg 07/17/24 16:17 Acetaminophen 325 Mg Tablet PO 08/16/24 16:16 Q6H PRN PAIN 1-3 OR FEVER > 100.4 Apixaban 5 mg 07/17/24 21:00 07/20/24 08:38 Apixaban 2.5 Mg Tablet PO 08/16/24 20:59 5 mg BID IMKE Administration Aspirin 81 mg 07/18/24 09:00 07/20/24 08:38 Aspirin Ec 81 Mg Tabec PO 08/17/24 08:59 81 mg QDAY MIKE Administration Yadira 180 Mg 0 ea 07/18/24 19:00 07/20/24 08:37 Tablet PO 08/17/24 18:59 1 tablet QDAY MIKE Administration Digoxin 0.25 mg 07/20/24 09:00 07/20/24 08:38 Digoxin 0.125 Mg Tablet PO 08/19/24 08:59 0.25 mg QDAY MIKE Administration Ezetimibe 10 mg 07/18/24 09:00 07/20/24 08:39 Ezetimibe 10 Mg Tablet PO 08/17/24 08:59 10 mg QDAY MIKE Administration Fluticasone Propionate 2 puff 07/17/24 16:45 07/20/24 06:51 Fluticasone 220 Mcg 12 Gm Inh INH 08/16/24 16:44 2 puff Q12HR MIKE Administration Furosemide 40 mg 07/19/24 09:00 07/20/24 08:37 Furosemide Inj 10 Mg/Ml 4ml Vial IVP 08/18/24 08:59 40 mg QDAY MIKE Administration Levothyroxine Sodium 25 mcg 07/19/24 06:00 07/20/24 05:29 Levothyroxine Sodium 25 Mcg Tablet PO 08/18/24 05:59 25 mcg ACBR MIEK Administration Metoprolol Succinate 50 mg 07/21/24 09:00 Metoprolol Succinate Xl 25 Mg Tabcr PO 08/20/24 08:59 QDAY MIKE Metoprolol Succinate 25 mg 07/20/24 11:16 Metoprolol Succinate Xl 25 Mg Tabcr PO 07/20/24 11:17 X1 ONE Ondansetron HCl 4 mg 07/17/24 16:17 Ondansetron Inj 2 Mg/Ml Inj 2 Ml IVP 08/16/24 16:16 Q6H PRN NAUSEA OR VOMITING Protocol Potassium Chloride 20 meq 07/18/24 09:00 07/20/24 08:38 Potassium Chloride 20 Meq Tabcr PO 08/17/24 08:59 20 meq QDAY MIKE Administration Plan Florecita Farrar is a 63-year-old female with past medical history of CHF (follows ware tester in [place]), cardiomyopathy, CVA with left-sided deficits in 2002, hypertension, asthma, hypothyroidism who presents on 07/17 with shortness of breath and admitted for management of a-fib with RVR. #New onset atrial fibrillation with RVR Presents with shortness of breath that started 4 to 5 days ago. Denies palpitations, chest pain, lightheadedness or previous episodes of a-fib with RVR. ? Cardiology consulted, appreciate recommendations ? Diltiazem drip discontinued ? Continue digoxin 0.25 mg p.o. daily ? Metoprolol succinate increased to 50 mg p.o. daily ? Eliquis 5 mg p.o. BID ? Keep Mg > 2 and K > 4 at all times #History of CHF #History of cardiomyopathy Follows-up with ware tester in [place], unsure if HFpEF or HFrEF and no records here. ? Cardiology consulted as above ? Echo pending ? Coreg held ? Torsemide 20 mg p.o. daily held ? Started on lasix 40 mg IV daily #History of CVA with left-sided deficits ? Aspirin 81 mg daily #Hypertension ? Holding antihypertensives for now per cardiology recommendations #Asthma ? Albuterol inhaler DC'd ? Fluticasone inhaler #Hypothyroidism TSH elevated at 9.5, free T4 elevated at 1.9. ? Levothyroxine decreased from 50 to 25 mcg p.o. ACBR Hospital management: Disposition: a-fib with RVR, telemetry Diet: cardiac Lines: PIV DVT prophylaxis: SCDs, eliquis 5 mg p.o. BID CODE STATUS: full code ----- Plan discussed with attending physician Dr. Jazlyn Townsend MD PGY-1 Internal Medicine Attending Provider Attestation/Addendum I attest that I was physically present for the evaluation, physical examination, lab and imaging review of the patient with the residents. I discussed the case with the residents and agree with the findings and plans of care as documented above. At bedside today, patient states she is feeling well and does not have any complaints. Denies any chest pain, shortness of breath or palpitations. Vital signs have been stable, pulse rate have improved mostly around low 90s. Continues to be on A-fib. Discussed with cardiology, stated that ejection fraction looks low on the echocardiography. We will discontinue Cardizem and start on metoprolol 50 daily. Lab results are stable. We will monitor her closely on the oral medication, if continues to be right controlled, we will plan for discharge tomorrow. Pretty Hobson MD
[2024-07-20] MEDS: ACETAMINOPHEN 325 MG TABLET 650 MG PO (14:15)
--- NOTE | 2024-07-20 14:30 | PC.SS ---
Rounding: Cardiology reccs one more day of monitoring, will return home upon DC
[2024-07-20 22:25] LABS: Amphetamine/Methamp Scrn,U Negative (Negative); Barbiturate Screen,Urine Negative (Negative); Benzodiazepines Screen,Urine Negative (Negative); Benzoylecgonine Screen, Ur Negative (Negative); Fentanyl Screen,Urine Negative (Negative); Opiate Screen,Urine Negative (Negative); THC Screen,Urine Negative (Negative)
--- NOTE | 2024-07-20 23:51 | ESPR_ITS ---
Documentation for date of: 07/20/24 Subjective Subjective Interval history: Patient seen and examined at the bedside. No new complaints including any cardiac complaints. Telemetry reviewed and patient continues to be in atrial fibrillation but heart rate is controlled between 80-100 bpm. Recommend to continue digoxin 0.25 mg once daily. Patient did get loading digoxin of 1 mg over the last 24 hours. Check digoxin levels in 1 week. Discontinue diltiazem drip and continue to uptitrate the metoprolol XL based on the blood pressure. Metoprolol XL 25 mg once daily has already been started and increased to metoprolol XL 50 mg once daily. Keep potassium greater than 4 and magnesium greater than 2.0 at all times. Echocardiogram from 07/19/2024 showed an EF of 30 to 35% with severe LV systolic dysfunction. Diastolic function present but cannot be graded because of the atrial fibrillation. Mildly reduced RV function. Moderately elevated RVSP at 45 to 50 mmHg. Severely dilated LA and mildly dilated RA. Dilated IVC. Moderate MR and moderate TR. Moderate aortic valve stenosis without stenosis. 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 Patient is doing well and diuresing well with Lasix 40 mg IV once daily. Patient breathing on room air and not hypoxic. Strict input output, daily weights and 2 g sodium diet. Patient does inform us that she does have a history of cardiomyopathy diagnosed in 2002 and had workup more than 10 years ago with an angiogram which was apparently negative. Will need to obtain outside records from [place] where her hospice nurse practitioner sees. Discussed with the patient about the need for a left and right heart cardiac catheterization given the cardiomyopathy or heart failure. Will hold off the Eliquis for now in anticipation of possible angiogram or left and right heart cardiac authorization. Plan to cardiac cath on 07/22/2024 as Eliquis will be stopped from today. Also recommend to obtain a U-Tox for the patient. Will need goal-directed medical therapy given the severe systolic congestive heart failure but blood pressure soft and will continue metoprolol XL for better rate control and eventually patient should be started on Entresto and spironolactone as outpatient based on the renal function. Exam Vital Signs Temp Pulse Resp BP Pulse Ox O2 Del Method O2 Flow Rate 96.9 F 115 H 30 H 123/72 97 Room Air 2 07/20/24 20:00 07/20/24 20:00 07/20/24 20:00 07/20/24 20:00 07/20/24 20:00 07/20/24 20:00 07/19/24 16:00 Narrative Exam General: Alert and oriented x3. obese, In no acute distress. Eyes: Pupils are equal and reactive to light bilaterally. HEENT: Atraumatic, normocephalic. No JVD noted. Mucosa moist. Cardiovascular: Normal S1 and S2.Irregular, 2-3/6 systolic murmur heard at the left apex as well as the right sternal border No peripheral pitting edema noted. Respiratory: No respiratory distress. Lungs are clear to auscultation bilaterally. No wheezing or crackles heard. Abdomen: Soft, nontender, nondistended. Skin: No rash. Warm to touch. Musculoskeletal: No gross injuries. Able to move all 4 extremities. Neuro: Alert and oriented x3. No focal neuro deficits. Psych: Normal affect and mood Objective Labs 07/20/24 05:24 07/20/24 05:24 Labs: Laboratory Results - last 24 hr 07/20/24 07/20/24 05:24 22:05 WBC 11.9 H RBC 4.75 Hgb 15.3 Hct 45.2 MCV 95 MCH 32.2 MCHC 33.8 RDW Std Deviation 49.0 H Plt Count 318 Neut % (Auto) 66 Lymph % (Auto) 22 [place] % (Auto) 8 Eos % (Auto) 2 Baso % (Auto) 1 Neut # (Auto) 7.8 H Lymph # (Auto) 2.6 [place] # (Auto) 1.0 H Eos # (Auto) 0.3 Baso # (Auto) 0.1 Immature Gran # (Auto) 0.12 H Absolute Nucleated RBC 0.00 Immature Gran % 1 H Nucleated RBC % 0 Sodium 145 Potassium 4.1 Chloride 109 H Carbon Dioxide 23.9 Anion Gap 12 BUN 15 Creatinine 0.8 Estim Creat Clear Calc 67.4 eGFR > 60 BUN/Creatinine Ratio 19 Glucose 95 Calculated Osmolality 289 Calcium 8.8 Corrected Calcium 8.8 Phosphorus 3.6 Magnesium 2.4 Total Bilirubin 0.8 AST 61 H ALT 250 H Alkaline Phosphatase 105 Total Protein 6.0 Albumin 4.0 Globulin 2.0 L Albumin/Globulin Ratio 2.0 Urine Opiates Screen Negative Urine Fentanyl Screen Negative Ur Barbiturates Screen Negative U Amphetamin/Meth Scrn Negative U Benzodiazepines Scrn Negative U Cocaine Metab Screen Negative U Marijuana (THC) Screen Negative Assessment & Plan A&P Narrative New onset AFIB with RVR HTN Known history of CHF, EF unknown, admission BNP 384, hospice nurse practitioner in [place], on home TORSEMIDE daily and CARVEDILOL. No known history of A-fib or arrhythmia, not on anticoagulation or rhythm/rate control. Admission EKG showed A-fib with RVR, HR 140s. Now on DILTIAZEM drip. BP on the softer side. HR remains uncontrolled. SOB likely related to A-fib with RVR. Otherwise she is hemodynamically stable, denies chest pain, shortness of breath, palpitations, satting well on room air. [id number] 7, HASBLED 3. TG 156, HDL 38, cholesterol 146, LDL 77 TSH 9.2, free T4 1.92, primary team decreased home LEVOTHYROXINE dose appropriately. 07/19/2024 On DILTIAZEM 5 mg/HR and DIGOXIN 0.5 mg Q6H, HR slightly better, although remains tachycardic in 130s, spiked occurring with minimal activities again, tele showing A-fib. 07/20/24 Telemetry reviewed and patient continues to be in atrial fibrillation but heart rate is controlled between 80-100 bpm. Recommend to continue digoxin 0.25 mg once daily. Patient did get loading digoxin of 1 mg over the last 24 hours. Check digoxin levels in 1 week. Discontinue diltiazem drip and continue to uptitrate the metoprolol XL based on the blood pressure. Metoprolol XL 25 mg once daily has already been started and increased to metoprolol XL 50 mg once daily. Keep potassium greater than 4 and magnesium greater than 2.0 at all times. ? Continue holding antihypertensives ? Will consider adding AMIODARONE if HR remains uncontrolled Acute versus acute on chronic combined systolic and diastolic congestive heart failure exacerbation: Echocardiogram from 07/19/2024 showed an EF of 30 to 35% with severe LV systolic dysfunction. Diastolic function present but cannot be graded because of the atrial fibrillation. Mildly reduced RV function. Moderately elevated RVSP at 45 to 50 mmHg. Severely dilated LA and mildly dilated RA. Dilated IVC. Moderate MR and moderate TR. Moderate aortic valve stenosis without stenosis. 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 Patient is doing well and diuresing well with Lasix 40 mg IV once daily. Patient breathing on room air and not hypoxic. Strict input output, daily weights and 2 g sodium diet. Patient does inform us that she does have a history of cardiomyopathy diagnosed in 2002 and had workup more than 10 years ago with an angiogram which was apparently negative. Will need to obtain outside records from [place] where her hospice nurse practitioner sees. Discussed with the patient about the need for a left and right heart cardiac catheterization given the cardiomyopathy or heart failure. Will hold off the Eliquis for now in anticipation of possible angiogram or left and right heart cardiac authorization. Plan to cardiac cath on 07/22/2024 as Eliquis will be stopped from today. Also recommend to obtain a U-Tox for the patient. Will need goal-directed medical therapy given the severe systolic congestive heart failure but blood pressure soft and will continue metoprolol XL for better rate control and eventually patient should be started on Entresto and spironolactone as outpatient based on the renal function. Hx CVA with residual left-sided deficit Family history of coagulopathy Head CT negative for acute pathology. History of hypercoagulability and several uncles, father passed of clotting disorder at the age of 46. Continue home ASPIRIN 81 mg daily Transient transaminase She had slight bump in LFTs, which appears to be improving, AST 110 > 71, ALT 281 > 257, ALP normal. Liver ultrasound showed 15.4 cm fluid around the liver, no focal liver lesion. Asthma No sign of asthma exacerbation ALBUTEROL was discontinued 2/2 beta agonism, denies wheezing or shortness of breath. May not need ALBUTEROL on discharge, recommended alternative such as [place] to be discussed with PCP. Hypothyroidism TSH 9.2, free T4 1.92, primary team decreased home LEVOTHYROXINE dose appropriately. Management of rest of the medical conditions as per primary team and other consultants. Thank you for the consult and allowing me to participate in the care of the patient. Cardiology will continue to follow. Time Spent With Patient Time: Total time spent is greater than 50% in coordination of care (as documented) at patient's floor/unit and/or counseling patient:
[2024-07-21] VITALS (11 sets, daily range): BP systolic 101–136; BP diastolic 72–102; PULSE 87–149; RESP 16–99; TEMP 35.9–36.6; O2SAT 95–100
[2024-07-21] MEDS: LEVOTHYROXINE SODIUM 25 MCG TABLET PO (05:18)
[2024-07-21 05:48] LABS: Basophils # (Auto) 0.1 Thou/mm3 (0.0-0.2); Basophils % (Auto) 1 % (0-2.5); Eosinophils # (Auto) 0.4 Thou/mm3 (0.0-0.5); Eosinophils % (Auto) 3 % (0-10); Hematocrit 46.4 % (36.0-46.0); Hemoglobin 15.7 g/dL (12.0-16.0); Immature Granulocytes % (Auto) 1 % (0-0); Immature Granulocytes Auto 0.18 Thou/mm3 (0.00-0.00); Lymphocytes # (Auto) 2.9 Thou/mm3 (1.0-4.8); Lymphocytes % (Auto) 22 % (10-50); Mean Corpuscular HGB Conc 33.8 g/dl (31.0-37.0); Mean Corpuscular Hemoglobin 31.8 pg (25.0-35.0); Mean Corpuscular Volume 94 fL (80-100); Monocytes # (Auto) 1.1 Thou/mm3 (0.0-0.8); Monocytes % (Auto) 8 % (0-12); Neutrophils # (Auto) 8.6 Thou/mm3 (1.8-7.7); Neutrophils % (Auto) 65 % (37-80); Nucleated Red Blood Cell % 0 /100 WBC (0); Platelet Count 327 Thou/mm3 (140-440); RDW Standard Deviation 47.8 fL (36.4-46.3); Red Blood Count 4.93 Miln/mm3 (4.00-5.20); White Blood Count 13.2 Thou/mm3 (3.6-11.0)
[2024-07-21] MEDS: FLUTICASONE 220 MCG 2 PUFF INH ×2 (06:16→18:56)
[2024-07-21 06:21] LABS: Alanine Aminotransferase 179 U/L (10-49); Albumin, Serum 4.4 gm/dL (3.4-4.8); Alkaline Phosphatase 107 U/L (46-116); Anion Gap 11 (7-16); Aspartate Amino Transferase 30 U/L (0-34); BUN/Creatinine Ratio 21 Ratio (12-20); Bilirubin,Total 0.7 mg/dL (0.3-1.2); Blood Urea Nitrogen 17 mg/dL (9-23); Calcium 9.9 mg/dL (8.3-10.6); Calcium (Corrected) 9.9 mg/dL (8.5-10.1); Carbon Dioxide 23.7 mMol/L (20.0-31.0); Chloride 105 mMol/L (98-107); Creatinine (Component) 0.8 mg/dL (0.6-1.3); Estimated Creatinine Clearance 65.9 mL/min (>60); Globulin 2.2 gm/dL (2.3-3.5); Glucose 97 mg/dL (74-106); Magnesium 2.6 mg/dL (1.6-2.6); Osmolality,Calculated 280 (275-295); Phosphorous 3.7 mg/dL (2.4-5.1); Potassium 4.1 mMol/L (3.4-5.1); Sodium 140 mMol/L (136-145); Total Protein 6.6 gm/dL (5.7-8.2); eGFR > 60 See Note
[2024-07-21] MEDS: DIGOXIN 0.125 MG TABLET 0.25 MG PO (08:33)
[2024-07-21] MEDS: POTASSIUM CHLORIDE 20 mEq TABCR PO (08:33)
[2024-07-21] MEDS: EZETIMIBE 10 MG TABLET PO (08:34)
[2024-07-21] MEDS: METOPROLOL SUCCINATE XL 25 MG TABCR 50 MG PO (08:34)
[2024-07-21] MEDS: ASPIRIN EC 81 MG TABEC PO (08:34)
[2024-07-21] MEDS: FUROSEMIDE INJ 10 MG/ML 4ML VIAL 40 MG IVP (08:34)
[2024-07-21] MEDS: ALLEGRA 180 MG TABLET PO (08:49)
--- NOTE | 2024-07-21 09:05 | ESPR_ITS ---
<Statement entered by Rocío Thomson MD - 07/22/24 07:37> 63-year-old female with multiple comorbidities including hypothyroidism, hypertension, hyperlipidemia, heart failure with reduced EF with EF 30-35% with severe LV systolic dysfunction and CVA with left-sided deficits presenting with shortness of breath found to have new onset A-fib with RVR. Currently, patient continues to be in A-fib with RVR despite being on digoxin, metoprolol 50 mg and Eliquis for anticoagulation. As for CHF, patient appears to be improving on Lasix 40 mg IV daily and unlikely in CHF exacerbation that is causing patient continued A-fib with RVR. As of now, plan to increase patient's metoprolol to 75 mg daily. Of note, patient does have an elevated TSH and T4 level likely related to levothyroxine and thus plan to decrease the dose from 50 to 25 mcg. Continue monitoring the patient until he and appreciate cardiology input.I reviewed above note and agree with findings and plans. I have also personally examined the patient with medicine team and went over assessment and plan with medical team including internal audit director and resident physician. <Statement entered by Maryse Napoles MD - 07/21/24 15:21> Patient seen and examined at bedside. No acute overnight events reported. Patient heart rate continues to be around 100s to 120s despite being on metoprolol XL 50 mg. Will increase patient's XL to 75 mg daily. Will continue with digoxin 0.25 mg daily as well. Cardiology inpatient recommended for patient to undergo a left heart cath, however patient would like to request her records to be sent to her home avionics safety inspector prior to making a decision for procedure. Otherwise patient denies any complaints of chest pain or shortness of breath. Will keep patient NPO just in case. I discussed with and supervised the internal audit director physician who took care of this patient. I personally saw and examined the patient and discussed the assessment and plan with the entire medicine team, including my attending , I agree with most of the assessment and plan as documented below Maryse Napoles M.D. PGY-2 Disclaimer: Despite multiple revisions, due to the dictation software being used, the document bellow may not be free of grammatical errors including phonetic/typographic errors. However, this does not deter from our commitment to providing health care in the patient's best interest in mind. Documentation for date of: 07/21/24 Subjective Subjective Interval history: No acute overnight events. Seen and examined at bedside and she denies any shortness of breath or chest discomfort but does endorse palpitations. Regimen was changed from metoprolol XL 50 to 75 mg given HR ranged from 100s-120s on telemetry and BP at 120/70 in AM. Will continue with digoxine 0.25 mg daily. Cardiology would like to undergo LHC/angiogram but patient is currently requesting records from her avionics safety inspector in [place] that she has followed up with for many years. Given possibility of cath, eliquis has been held and will await records. Exam Vital Signs Temp Pulse Resp BP Pulse Ox O2 Del Method O2 Flow Rate 97.7 F 120 H 18 120/72 100 Room Air 2 07/21/24 04:00 07/21/24 08:34 07/21/24 06:17 07/21/24 08:34 07/21/24 06:17 07/21/24 04:00 07/19/24 16:00 Narrative Exam General: AOx3, no acute distress, able to speak full sentences HEENT: NC/AT, mucous membranes moist, bilateral sclera anicteric Cardiovascular: tachycardic, irregular, S1/S2 present, no murmurs appreciated Pulmonary: no wheezing or crackles appreciated on exam Abdominal: soft, non-tender, non-distended, no rebound/guarding, normal bowel sounds present Musculoskeletal: trace bilateral lower extremity edema, normal ROM Skin: warm and dry, intact, no rashes Neuro: CN II-XII intact, no focal deficits Objective Labs 07/21/24 04:46 07/21/24 04:46 Labs: Laboratory Results - last 24 hr 07/20/24 07/21/24 22:05 04:46 WBC 13.2 H RBC 4.93 Hgb 15.7 Hct 46.4 H MCV 94 MCH 31.8 MCHC 33.8 RDW Std Deviation 47.8 H Plt Count 327 Neut % (Auto) 65 Lymph % (Auto) 22 [place] % (Auto) 8 Eos % (Auto) 3 Baso % (Auto) 1 Neut # (Auto) 8.6 H Lymph # (Auto) 2.9 [place] # (Auto) 1.1 H Eos # (Auto) 0.4 Baso # (Auto) 0.1 Immature Gran # (Auto) 0.18 H Absolute Nucleated RBC 0.00 Immature Gran % 1 H Nucleated RBC % 0 Sodium 140 Potassium 4.1 Chloride 105 Carbon Dioxide 23.7 Anion Gap 11 BUN 17 Creatinine 0.8 Estim Creat Clear Calc 65.9 eGFR > 60 BUN/Creatinine Ratio 21 H Glucose 97 Calculated Osmolality 280 Calcium 9.9 Corrected Calcium 9.9 Phosphorus 3.7 Magnesium 2.6 Total Bilirubin 0.7 AST 30 ALT 179 H Alkaline Phosphatase 107 Total Protein 6.6 Albumin 4.4 Globulin 2.2 L Albumin/Globulin Ratio 2.0 Urine Opiates Screen Negative Urine Fentanyl Screen Negative Ur Barbiturates Screen Negative U Amphetamin/Meth Scrn Negative U Benzodiazepines Scrn Negative U Cocaine Metab Screen Negative U Marijuana (THC) Screen Negative Quality Measures Quality Measures none Advance care planning discussed with:: patient Assessment & Plan Assessment Current Active Medications: Generic Name Dose Route Start Last Admin Trade Name Freq PRN Reason Stop Dose Admin Acetaminophen 650 mg 07/17/24 16:17 07/20/24 14:15 Acetaminophen 325 Mg Tablet PO 08/16/24 16:16 650 mg Q6H PRN Administration PAIN 1-3 OR FEVER > 100.4 Apixaban 5 mg 07/17/24 21:00 07/20/24 20:34 Apixaban 2.5 Mg Tablet PO 08/16/24 20:59 5 mg BID MIKE Administration Aspirin 81 mg 07/18/24 09:00 07/21/24 08:34 Aspirin Ec 81 Mg Tabec PO 08/17/24 08:59 81 mg QDAY MIKE Administration Yadira 180 Mg 0 ea 07/18/24 19:00 07/21/24 08:49 Tablet PO 08/17/24 18:59 1 tablet QDAY MIKE Administration Digoxin 0.25 mg 07/20/24 09:00 07/21/24 08:33 Digoxin 0.125 Mg Tablet PO 08/19/24 08:59 0.25 mg QDAY MIKE Administration Ezetimibe 10 mg 07/18/24 09:00 07/21/24 08:34 Ezetimibe 10 Mg Tablet PO 08/17/24 08:59 10 mg QDAY MIKE Administration Fluticasone Propionate 2 puff 07/17/24 16:45 07/21/24 06:16 Fluticasone 220 Mcg 12 Gm Inh INH 06/22/25 16:44 2 puff Q12HR MIKE Administration Furosemide 40 mg 07/19/24 09:00 07/21/24 08:34 Furosemide Inj 10 Mg/Ml 4ml Vial IVP 08/18/24 08:59 40 mg QDAY MIKE Administration Levothyroxine Sodium 25 mcg 07/19/24 06:00 07/21/24 05:18 Levothyroxine Sodium 25 Mcg Tablet PO 08/18/24 05:59 25 mcg ACBR MIKE Administration Metoprolol Succinate 50 mg 07/21/24 09:00 07/21/24 08:34 Metoprolol Succinate Xl 25 Mg Tabcr PO 08/20/24 08:59 50 mg QDAY MIKE Administration Ondansetron HCl 4 mg 07/17/24 16:17 Ondansetron Inj 2 Mg/Ml Inj 2 Ml IVP 08/16/24 16:16 Q6H PRN NAUSEA OR VOMITING Protocol Potassium Chloride 20 meq 07/18/24 09:00 07/21/24 08:33 Potassium Chloride 20 Meq Tabcr PO 08/17/24 08:59 20 meq QDAY MIKE Administration Plan Florecita Farrar is a 63-year-old female with past medical history of CHF (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 #New onset atrial fibrillation with RVR Presents with shortness of breath that started 4 to 5 days ago. Denies palpitations, chest pain, lightheadedness or previous episodes of a-fib with RVR. Diltiazem drip discontinued due to echo findings. ? Cardiology consulted, appreciate recommendations ? Continue digoxin 0.25 mg p.o. daily ? Metoprolol succinate increased to 75 mg p.o. daily ? Eliquis 5 mg p.o. BID -> HELD for possible LHC ? Keep Mg > 2 and K > 4 at all times #History of CHF #History of cardiomyopathy Follows-up with avionics safety inspector in [place], unsure if HFpEF or HFrEF and no records here. Echocardiogram from 07/19/2024 showed an EF of 30 to 35% with severe LV systolic dysfunction. Diastolic function present but cannot be graded because of the atrial fibrillation. Mildly reduced RV function. Moderately elevated RVSP at 45 to 50 mmHg. Severely dilated LA and mildly dilated RA. Dilated IVC. Moderate MR and moderate TR. Moderate aortic valve stenosis without stenosis. 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 ? Cardiology consulted as above ? Coreg held ? Torsemide 20 mg p.o. daily held ? Lasix 40 mg IV daily #History of CVA with left-sided deficits ? Aspirin 81 mg daily #Hypertension ? Metoprolol as above #Asthma ? Albuterol inhaler DC'd ? Fluticasone inhaler #Hypothyroidism TSH elevated at 9.5, free T4 elevated at 1.9. ? Levothyroxine decreased from 50 to 25 mcg p.o. [facility] Hospital management: Disposition: a-fib with RVR, telemetry Diet: cardiac Lines: PIV DVT prophylaxis: SCDs, eliquis 5 mg p.o. BID (HELD) CODE STATUS: full code ----- Plan discussed with attending physician Dr. Thomson and senior resident physician Dr. Dony Townsend MD PGY-1 Internal Medicine
[2024-07-21] MEDS: METOPROLOL SUCCINATE XL 25 MG TABCR PO (10:31)
[2024-07-21] MEDS: ACETAMINOPHEN 325 MG TABLET 650 MG PO (10:31)
--- NOTE | 2024-07-21 11:25 | PC.SS ---
SS follow up note; Pending Heart Cath tomorrow, with Surgery Tech. Patient will discharge home when medically cleared.
[2024-07-21] MEDS: SACUBITRIL 24 MG/VALSARTAN 26 MG TABLET 0.5 TAB PO (20:42)
--- NOTE | 2024-07-21 23:45 | PD.IMPROG ---
Documentation for date of: 07/21/24 Subjective Subjective Interval history: Patient seen and examined at the bedside. No new complaints including any cardiac complaints. Telemetry reviewed and patient continues to be in atrial fibrillation but rate is controlled between 80-110 bpm Diltiazem drip was discontinued metoprolol at 50 mg once daily Digoxin loaded with a total of total of 1 mg. Continue digoxin at 0.25 mg once daily and recommend to check digoxin levels in 1 week. Keep potassium greater than 4 and magnesium greater than 2.0 at all times. Patient is doing well and diuresing well with Lasix 40 mg IV once daily and can be changed to Lasix 40 mg once daily at the time of discharge. Patient breathing on room air and not hypoxic. Strict input output, daily weights and 2 g sodium diet. Patient does inform us that she does have a history of cardiomyopathy diagnosed in 2002 and had workup more than 10 years ago with an angiogram which was apparently negative. Will need to obtain outside records from her home mortgage disclosure act specialist office in [place]. Discussed with the patient about the need for a left and right heart cardiac catheterization given the cardiomyopathy or heart failure. Patient wants to discuss with her primary home mortgage disclosure act specialist at [facility] in [place] where she follows regularly. Will hold off the Eliquis for now in anticipation of possible angiogram or left and right heart cardiac authorization. Plan to cardiac cath on 07/22/2024 U-Tox negative Will need goal-directed medical therapy given the severe systolic congestive heart failure, continue metoprolol 50 mg once daily and started Entresto at half tablet twice a day for now. Continue to monitor renal function eventually as outpatient patient will need to be started on spironolactone. Exam Vital Signs Temp Pulse Resp BP Pulse Ox O2 Del Method O2 Flow Rate 96.7 F L 95 16 136/86 H 100 Room Air 2 07/21/24 20:00 07/21/24 20:00 07/21/24 20:07/21/24 20:07/21/24 20:07/21/24 20:07/19/24 16:00 Narrative Exam General: Alert and oriented x3. obese, In no acute distress. Eyes: Pupils are equal and reactive to light bilaterally. HEENT: Atraumatic, normocephalic. No JVD noted. Mucosa moist. Cardiovascular: Normal S1 and S2.Irregular, 2-3/6 systolic murmur heard at the left apex as well as the right sternal border No peripheral pitting edema noted. Respiratory: No respiratory distress. Lungs are clear to auscultation bilaterally. No wheezing or crackles heard. Abdomen: Soft, nontender, nondistended. Skin: No rash. Warm to touch. Musculoskeletal: No gross injuries. Able to move all 4 extremities. Neuro: Alert and oriented x3. No focal neuro deficits. Psych: Normal affect and mood Objective Labs 07/23/24 06:41 07/23/24 06:41 Labs: Laboratory Results - last 24 hr 07/21/24 04:46 WBC 13.2 H RBC 4.93 Hgb 15.7 Hct 46.4 H MCV 94 MCH 31.8 MCHC 33.8 RDW Std Deviation 47.8 H Plt Count 327 Neut % (Auto) 65 Lymph % (Auto) 22 [place] % (Auto) 8 Eos % (Auto) 3 Baso % (Auto) 1 Neut # (Auto) 8.6 H Lymph # (Auto) 2.9 [place] # (Auto) 1.1 H Eos # (Auto) 0.4 Baso # (Auto) 0.1 Immature Gran # (Auto) 0.18 H Absolute Nucleated RBC 0.00 Immature Gran % 1 H Nucleated RBC % 0 Sodium 140 Potassium 4.1 Chloride 105 Carbon Dioxide 23.7 Anion Gap 11 BUN 17 Creatinine 0.8 Estim Creat Clear Calc 65.9 eGFR > 60 BUN/Creatinine Ratio 21 H Glucose 97 Calculated Osmolality 280 Calcium 9.9 Corrected Calcium 9.9 Phosphorus 3.7 Magnesium 2.6 Total Bilirubin 0.7 AST 30 ALT 179 H Alkaline Phosphatase 107 Total Protein 6.6 Albumin 4.4 Globulin 2.2 L Albumin/Globulin Ratio 2.0 Assessment & Plan A&P Narrative New onset AFIB with RVR HTN Known history of CHF, EF unknown, admission BNP 384, home mortgage disclosure act specialist in [place], on home TORSEMIDE daily and CARVEDILOL. No known history of A-fib or arrhythmia, not on anticoagulation or rhythm/rate control. Admission EKG showed A-fib with RVR, HR 140s. Now on DILTIAZEM drip. BP on the softer side. HR remains uncontrolled. SOB likely related to A-fib with RVR. Otherwise she is hemodynamically stable, denies chest pain, shortness of breath, palpitations, satting well on room air. [id number] 7, HASBLED 3. TG 156, HDL 38, cholesterol 146, LDL 77 TSH 9.2, free T4 1.92, primary team decreased home LEVOTHYROXINE dose appropriately. 07/19/2024 On DILTIAZEM 5 mg/HR and DIGOXIN 0.5 mg Q6H, HR slightly better, although remains tachycardic in 130s, spiked occurring with minimal activities again, tele showing A-fib. 07/21/24 Telemetry reviewed and patient continues to be in atrial fibrillation but rate is controlled between 80-110 bpm Diltiazem drip was discontinued metoprolol at 50 mg once daily Digoxin loaded with a total of total of 1 mg. Continue digoxin at 0.25 mg once daily and recommend to check digoxin levels in 1 week. Keep potassium greater than 4 and magnesium greater than 2.0 at all times. Acute versus acute on chronic combined systolic and diastolic congestive heart failure exacerbation: Echocardiogram from 07/19/2024 showed an EF of 30 to 35% with severe LV systolic dysfunction. Diastolic function present but cannot be graded because of the atrial fibrillation. Mildly reduced RV function. Moderately elevated RVSP at 45 to 50 mmHg. Severely dilated LA and mildly dilated RA. Dilated IVC. Moderate MR and moderate TR. Moderate aortic valve stenosis without stenosis. 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 Patient is doing well and diuresing well with Lasix 40 mg IV once daily and can be changed to Lasix 40 mg once daily at the time of discharge. Patient breathing on room air and not hypoxic. Strict input output, daily weights and 2 g sodium diet. Patient does inform us that she does have a history of cardiomyopathy diagnosed in 2002 and had workup more than 10 years ago with an angiogram which was apparently negative. Will need to obtain outside records from her home mortgage disclosure act specialist office in [place]. Discussed with the patient about the need for a left and right heart cardiac catheterization given the cardiomyopathy or heart failure. Patient wants to discuss with her primary home mortgage disclosure act specialist at [facility] in [place] where she follows regularly. Will hold off the Eliquis for now in anticipation of possible angiogram or left and right heart cardiac authorization. Plan to cardiac cath on 07/22/2024 U-Tox negative Will need goal-directed medical therapy given the severe systolic congestive heart failure, continue metoprolol 50 mg once daily and started Entresto at half tablet twice a day for now. Continue to monitor renal function eventually as outpatient patient will need to be started on spironolactone. Hx CVA with residual left-sided deficit Family history of coagulopathy Head CT negative for acute pathology. History of hypercoagulability and several uncles, father passed of clotting disorder at the age of 46. Continue home ASPIRIN 81 mg daily Transient transaminase She had slight bump in LFTs, which appears to be improving, AST 110 > 71, ALT 281 > 257, ALP normal. Liver ultrasound showed 15.4 cm fluid around the liver, no focal liver lesion. Asthma No sign of asthma exacerbation ALBUTEROL was discontinued 2/2 beta agonism, denies wheezing or shortness of breath. May not need ALBUTEROL on discharge, recommended alternative such as M[place] to be discussed with PCP. Hypothyroidism TSH 9.2, free T4 1.92, primary team decreased home LEVOTHYROXINE dose appropriately. Management of rest of the medical conditions as per primary team and other consultants. Thank you for the consult and allowing me to participate in the care of the patient. Cardiology will continue to follow. Balta Polanco M.D. Interventional Cardiology Time Spent With Patient Time: Total time spent is greater than 50% in coordination of care (as documented) at patient's floor/unit and/or counseling patient:
[2024-07-22] VITALS (12 sets, daily range): BP systolic 92–114; BP diastolic 58–85; PULSE 85–122; RESP 15–99; TEMP 36.1–36.9; O2SAT 96–100; BMI 28.3
[2024-07-22] MEDS: LEVOTHYROXINE SODIUM 25 MCG TABLET PO (05:39)
[2024-07-22] MEDS: FLUTICASONE 220 MCG 2 PUFF INH ×2 (06:09→19:23)
[2024-07-22 06:15] LABS: Basophils # (Auto) 0.1 Thou/mm3 (0.0-0.2); Basophils % (Auto) 1 % (0-2.5); Eosinophils # (Auto) 0.4 Thou/mm3 (0.0-0.5); Eosinophils % (Auto) 3 % (0-10); Hematocrit 48.9 % (36.0-46.0); Hemoglobin 16.7 g/dL (12.0-16.0); Immature Granulocytes % (Auto) 1 % (0-0); Immature Granulocytes Auto 0.17 Thou/mm3 (0.00-0.00); Lymphocytes # (Auto) 3.3 Thou/mm3 (1.0-4.8); Lymphocytes % (Auto) 26 % (10-50); Mean Corpuscular HGB Conc 34.2 g/dl (31.0-37.0); Mean Corpuscular Hemoglobin 32.6 pg (25.0-35.0); Mean Corpuscular Volume 95 fL (80-100); Monocytes # (Auto) 1.1 Thou/mm3 (0.0-0.8); Monocytes % (Auto) 8 % (0-12); Neutrophils # (Auto) 7.7 Thou/mm3 (1.8-7.7); Neutrophils % (Auto) 60 % (37-80); Nucleated Red Blood Cell % 0 /100 WBC (0); Platelet Count 338 Thou/mm3 (140-440); RDW Standard Deviation 48.6 fL (36.4-46.3); Red Blood Count 5.13 Miln/mm3 (4.00-5.20); White Blood Count 12.7 Thou/mm3 (3.6-11.0)
[2024-07-22 06:48] LABS: Alanine Aminotransferase 131 U/L (10-49); Albumin, Serum 4.3 gm/dL (3.4-4.8); Alkaline Phosphatase 105 U/L (46-116); Anion Gap 13 (7-16); Aspartate Amino Transferase 24 U/L (0-34); BUN/Creatinine Ratio 24 Ratio (12-20); Bilirubin,Total 0.7 mg/dL (0.3-1.2); Blood Urea Nitrogen 17 mg/dL (9-23); Calcium 9.2 mg/dL (8.3-10.6); Calcium (Corrected) 9.2 mg/dL (8.5-10.1); Carbon Dioxide 22.3 mMol/L (20.0-31.0); Chloride 108 mMol/L (98-107); Creatinine (Component) 0.7 mg/dL (0.6-1.3); Estimated Creatinine Clearance 74.8 mL/min (>60); Globulin 2.1 gm/dL (2.3-3.5); Glucose 84 mg/dL (74-106); Magnesium 2.4 mg/dL (1.6-2.6); Osmolality,Calculated 285 (275-295); Phosphorous 3.4 mg/dL (2.4-5.1); Potassium 4.5 mMol/L (3.4-5.1); Sodium 143 mMol/L (136-145); Total Protein 6.4 gm/dL (5.7-8.2); eGFR > 60 See Note
--- NOTE | 2024-07-22 10:33 | PD.RESPRO ---
Documentation for date of: 07/22/24 Subjective Subjective Interval history: No acute overnight events. Seen and examined at bedside and patient endorsed episode of nausea, diaphoresis, and lightheadedness but no SOB, CP, or palpitations. Spot glucose check in 120s and BP stable with HR between 90-120 and episode resolved without any intervention required. Otherwise, metoprolol succinate decreased from 75 to 50 mg daily in order to make room for Entresto at 0.5 tablets BID. Per patient, her safety manager and deni Florecita would prefer her not to undergo left heart cath as they were not able to review all of our records. Also touched base with Dr. Polanco who stated that patient will follow-up with him outpatient in seven days and at that time to have BMP, magnesium, and digoxin levels. Exam Vital Signs Temp Pulse Resp BP Pulse Ox O2 Del Method O2 Flow Rate 97.0 F 99 15 114/85 H 100 Room Air 2 07/22/24 08:00 07/22/24 08:00 07/22/24 08:00 07/22/24 08:00 07/22/24 08:00 07/22/24 08:00 07/19/24 16:00 Narrative Exam General: AOx3, no acute distress, able to speak full sentences HEENT: NC/AT, mucous membranes moist, bilateral sclera anicteric Cardiovascular: regular rate, irregular, S1/S2 present, no murmurs appreciated Pulmonary: no wheezing or crackles appreciated on exam Abdominal: soft, non-tender, non-distended, no rebound/guarding, normal bowel sounds present Musculoskeletal: trace bilateral lower extremity edema, normal ROM Skin: warm and dry, intact, no rashes Neuro: CN II-XII intact, no focal deficits Objective Labs 07/23/24 06:41 07/23/24 06:41 Labs: Laboratory Results - last 24 hr 07/22/24 04:28 WBC 12.7 H RBC 5.13 Hgb 16.7 H Hct 48.9 H MCV 95 MCH 32.6 MCHC 34.2 RDW Std Deviation 48.6 H Plt Count 338 Neut % (Auto) 60 Lymph % (Auto) 26 [place] % (Auto) 8 Eos % (Auto) 3 Baso % (Auto) 1 Neut # (Auto) 7.7 Lymph # (Auto) 3.3 [place] # (Auto) 1.1 H Eos # (Auto) 0.4 Baso # (Auto) 0.1 Immature Gran # (Auto) 0.17 H Absolute Nucleated RBC 0.00 Immature Gran % 1 H Nucleated RBC % 0 Sodium 143 Potassium 4.5 Chloride 108 H Carbon Dioxide 22.3 Anion Gap 13 BUN 17 Creatinine 0.7 Estim Creat Clear Calc 74.8 eGFR > 60 BUN/Creatinine Ratio 24 H Glucose 84 Calculated Osmolality 285 Calcium 9.2 Corrected Calcium 9.2 Phosphorus 3.4 Magnesium 2.4 Total Bilirubin 0.7 AST 24 ALT 131 H Alkaline Phosphatase 105 Total Protein 6.4 Albumin 4.3 Globulin 2.1 L Albumin/Globulin Ratio 2.0 Quality Measures Quality Measures none Advance care planning discussed with:: patient Assessment & Plan Assessment Current Active Medications: Generic Name Dose Route Start Last Admin Trade Name Freq PRN Reason Stop Dose Admin Acetaminophen 650 mg 07/17/24 16:17 07/21/24 10:31 Acetaminophen 325 Mg Tablet PO 08/16/24 16:16 650 mg Q6H PRN Administration PAIN 1-3 OR FEVER > 100.4 Apixaban 5 mg 07/17/24 21:00 07/20/24 20:34 Apixaban 2.5 Mg Tablet PO 08/16/24 20:59 5 mg BID MIKE Administration Aspirin 81 mg 07/18/24 09:00 07/21/24 08:34 Aspirin Ec 81 Mg Tabec PO 08/17/24 08:59 81 mg QDAY MIKE Administration Yadira 180 Mg 0 ea 07/18/24 19:00 07/21/24 08:49 Tablet PO 08/17/24 18:59 1 tablet QDAY MIKE Administration Digoxin 0.25 mg 07/20/24 09:00 07/21/24 08:33 Digoxin 0.125 Mg Tablet PO 08/19/24 08:59 0.25 mg QDAY MIKE Administration Ezetimibe 10 mg 07/18/24 09:00 07/21/24 08:34 Ezetimibe 10 Mg Tablet PO 08/17/24 08:59 10 mg QDAY MIKE Administration Fluticasone Propionate 2 puff 07/17/24 16:45 07/22/24 06:09 Fluticasone 220 Mcg 12 Gm Inh INH 08/16/24 16:44 2 puff Q12HR MIKE Administration Furosemide 40 mg 07/19/24 09:00 07/21/24 08:34 Furosemide Inj 10 Mg/Ml 4ml Vial IVP 08/18/24 08:59 40 mg QDAY MIKE Administration Levothyroxine Sodium 25 mcg 07/19/24 06:00 07/22/24 05:39 Levothyroxine Sodium 25 Mcg Tablet PO 08/18/24 05:59 25 mcg ACBR MIKE Administration Metoprolol Succinate 50 mg 07/22/24 09:00 Metoprolol Succinate Xl 25 Mg Tabcr PO 08/21/24 08:59 QDAY MIKE Ondansetron HCl 4 mg 07/17/24 16:17 Ondansetron Inj 2 Mg/Ml Inj 2 Ml IVP 08/16/24 16:16 Q6H PRN NAUSEA OR VOMITING Protocol Potassium Chloride 20 meq 07/18/24 09:00 07/21/24 08:33 Potassium Chloride 20 Meq Tabcr PO 08/17/24 08:59 20 meq QDAY MIKE Administration Sacubitril/Valsartan 0.5 tab 07/21/24 21:00 07/21/24 20:42 Sacubitril 24 Mg/Valsartan 26 Mg Tablet PO 08/20/24 20:59 0.5 tab BID MIKE Administration Plan Florecita Farrar is a 63-year-old female with past medical history of CHF (follows safety manager in [place]), cardiomyopathy, CVA with left-sided deficits in 2002, hypertension, asthma, hypothyroidism who presents on 07/17 with shortness of breath and admitted for management of a-fib with RVR. #New onset atrial fibrillation with RVR Presents with shortness of breath that started 4 to 5 days ago. Denies palpitations, chest pain, lightheadedness or previous episodes of a-fib with RVR. Diltiazem drip discontinued due to echo findings. ? Cardiology consulted, appreciate recommendations ? Continue digoxin 0.25 mg p.o. daily ? Metoprolol succinate 50 mg p.o. daily ? Eliquis 5 mg p.o. BID ? Keep Mg > 2 and K > 4 at all times ? Follow-up with cardiology outpatient within 7 days with labs #HFrEF (30-35%, 06/2024) #History of dilated cardiomyopathy Follows-up with safety manager in [place], unsure if HFpEF or HFrEF and no records here. Echocardiogram from 07/19/2024 showed an EF of 30 to 35% with severe LV systolic dysfunction. Diastolic function present but cannot be graded because of the atrial fibrillation. Mildly reduced RV function. Moderately elevated RVSP at 45 to 50 mmHg. Severely dilated LA and mildly dilated RA. Dilated IVC. Moderate MR and moderate TR. Moderate aortic valve sclerosis without stenosis. 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 Previously planned for [facility] but safety manager who she follows up with prefers she not until he sees her but will follow-up with Dr. Polanco outpatient in the meantime. ? Cardiology consulted as above ? Lasix 40 mg IV daily ? Entresto 0.5 tablet twice daily ? Coreg held ? Torsemide 20 mg p.o. daily held #History of CVA with left-sided deficits ? Aspirin 81 mg daily #Hypertension ? Metoprolol as above #Asthma ? Albuterol inhaler DC'd ? Fluticasone inhaler #Hypothyroidism TSH elevated at 9.5, free T4 elevated at 1.9. ? Levothyroxine decreased from 50 to 25 mcg p.o. [facility] Hospital management: Disposition: a-fib with RVR, telemetry Diet: cardiac Lines: PIV DVT prophylaxis: SCDs, eliquis 5 mg p.o. BID CODE STATUS: full code ----- Plan discussed with attending physician Dr. Alix Townsend MD PGY-1 Internal Medicine Attending Provider Attestation/Addendum 63-year-old female with multiple comorbidities including hypothyroidism, hypertension, hyperlipidemia, heart failure with reduced EF with EF 30-35% with severe LV systolic dysfunction and CVA with left-sided deficits presenting with shortness of breath found to have new onset A-fib with RVR. Currently, patient continues to be in A-fib with RVR despite being on digoxin, metoprolol 50 mg and Eliquis for anticoagulation. As for CHF, patient appears to be improving on Lasix 40 mg IV daily and unlikely in CHF exacerbation that is causing patient continued A-fib with RVR. As of now, plan to increase patient's metoprolol to 75 mg daily. Of note, patient does have an elevated TSH and T4 level likely related to levothyroxine and thus plan to decrease the dose from 50 to 25 mcg. Currenly, to titrate BB and once HR below 110 will discharge patient. I reviewed above note and agree with findings and plans. I have also personally examined the patient with medicine team and went over assessment and plan with medical team including international logistics manager and resident physician.
[2024-07-22] MEDS: ALLEGRA 180 MG TABLET PO (11:20)
[2024-07-22] MEDS: EZETIMIBE 10 MG TABLET PO (11:20)
[2024-07-22] MEDS: ASPIRIN EC 81 MG TABEC PO (11:20)
[2024-07-22] MEDS: POTASSIUM CHLORIDE 20 mEq TABCR PO (11:20)
[2024-07-22] MEDS: DIGOXIN 0.125 MG TABLET 0.25 MG PO (11:24)
[2024-07-22] MEDS: METOPROLOL SUCCINATE XL 25 MG TABCR 50 MG PO (11:24)
[2024-07-22] MEDS: FUROSEMIDE INJ 10 MG/ML 4ML VIAL 40 MG IVP (11:25)
--- NOTE | 2024-07-22 12:30 | PD.IMPROG ---
Documentation for date of: 07/22/24 Subjective Subjective Interval history: Patient seen and examined at the bedside. No new complaints including any cardiac complaints. Telemetry reviewed and patient continues to be in atrial fibrillation but rate is better controlled between 80-110 bpm Continue with metoprolol XL 50 mg once daily as well as digoxin 0.25 mg once daily. Recommend to check digoxin levels in 1 week. Digoxin loaded with a total of 1 mg few days ago. Keep potassium greater than 4 and magnesium greater than 2.0 at all times. Restart Eliquis for anticoagulation as patient does not want any cardiac catheterization at the present point of time. Patient was recommended left and right heart cardiac catheterization given the cardiomyopathy / heart failure and her last workup was more than 10 years ago. Patient apparently spoke to her application systems engineer office and they recommended on holding of the cardiac catheter at the present moment and she wants to continue the workup as outpatient with her application systems engineer at [facility] in [place]. Patient explained the risk benefits and alternatives of the same and had a detailed discussion with her Patient unsure when is her next appointment and is also unsure why she was not on Entresto given her history of cardiomyopathy. Recommended to follow-up in 1 week with her application systems engineer or my office that she has been started on digoxin to check digoxin level and also to evaluate her renal function as patient has been started on Lasix, Entresto. Digoxin levels will be affected with acute kidney injury and need to be followed up closely Patient is doing well and diuresing well with Lasix 40 mg IV once daily and can be changed to Lasix 40 mg once daily at the time of discharge tomorrow. Patient breathing on room air and not hypoxic. Strict input output, daily weights and 2 g sodium diet. Patient does inform us that she does have a history of cardiomyopathy diagnosed in 2002 and had workup more than 10 years ago with an angiogram which was apparently negative. Will need to obtain outside records from her application systems engineer office in [place]. Will need goal-directed medical therapy given the severe systolic congestive heart failure, continue metoprolol 50 mg once daily and started Entresto at half tablet twice a day for now. Continue to monitor renal function eventually as outpatient patient will need to be started on spironolactone. Exam Vital Signs Temp Pulse Resp BP Pulse Ox O2 Del Method O2 Flow Rate 97.0 F 91 22 H 116/91 H 100 Room Air 2 07/23/24 04:00 07/23/24 06:18 07/23/24 06:18 07/23/24 04:00 07/23/24 06:18 07/23/24 04:00 07/19/24 16:00 Narrative Exam General: Alert and oriented x3. obese, In no acute distress. Eyes: Pupils are equal and reactive to light bilaterally. HEENT: Atraumatic, normocephalic. No JVD noted. Mucosa moist. Cardiovascular: Normal S1 and S2.Irregular, 2-3/6 systolic murmur heard at the left apex as well as the right sternal border No peripheral pitting edema noted. Respiratory: No respiratory distress. Lungs are clear to auscultation bilaterally. No wheezing or crackles heard. Abdomen: Soft, nontender, nondistended. Skin: No rash. Warm to touch. Musculoskeletal: No gross injuries. Able to move all 4 extremities. Neuro: Alert and oriented x3. No focal neuro deficits. Psych: Normal affect and mood Objective Labs 07/23/24 06:41 07/23/24 06:41 Labs: Laboratory Results - last 24 hr 07/23/24 06:41 WBC 11.7 H RBC 5.04 Hgb 16.0 Hct 47.3 H MCV 94 MCH 31.7 MCHC 33.8 RDW Std Deviation 49.0 H Plt Count 357 Neut % (Auto) 64 Lymph % (Auto) 25 [place] % (Auto) 8 Eos % (Auto) 2 Baso % (Auto) 1 Neut # (Auto) 7.4 Lymph # (Auto) 2.9 [place] # (Auto) 0.9 H Eos # (Auto) 0.3 Baso # (Auto) 0.1 Immature Gran # (Auto) 0.09 H Absolute Nucleated RBC 0.00 Immature Gran % 1 H Nucleated RBC % 0 Sodium 142 Potassium 4.4 Chloride 107 Carbon Dioxide 25.5 Anion Gap 10 BUN 19 Creatinine 0.8 Estim Creat Clear Calc 64.2 eGFR > 60 BUN/Creatinine Ratio 24 H Glucose 97 Calculated Osmolality 285 Calcium 9.0 Corrected Calcium 9.0 Phosphorus 3.3 Magnesium 2.4 Total Bilirubin 0.8 AST 24 ALT 103 H Alkaline Phosphatase 102 Total Protein 6.4 Albumin 4.2 Globulin 2.2 L Albumin/Globulin Ratio 1.9 Assessment & Plan A&P Narrative New onset AFIB with RVR HTN Known history of CHF, EF unknown, admission BNP 384, application systems engineer in [place], on home TORSEMIDE daily and CARVEDILOL. No known history of A-fib or arrhythmia, not on anticoagulation or rhythm/rate control. Admission EKG showed A-fib with RVR, HR 140s. Now on DILTIAZEM drip. BP on the softer side. HR remains uncontrolled. SOB likely related to A-fib with RVR. Otherwise she is hemodynamically stable, denies chest pain, shortness of breath, palpitations, satting well on room air. [id number], HASBLED 3. TG 156, HDL 38, cholesterol 146, LDL 77 TSH 9.2, free T4 1.92, primary team decreased home LEVOTHYROXINE dose appropriately. 07/19/2024 On DILTIAZEM 5 mg/HR and DIGOXIN 0.5 mg Q6H, HR slightly better, although remains tachycardic in 130s, spiked occurring with minimal activities again, tele showing A-fib. 07/22/24 Telemetry reviewed and patient continues to be in atrial fibrillation but rate is better controlled between 80-110 bpm Continue with metoprolol XL 50 mg once daily as well as digoxin 0.25 mg once daily. Recommend to check digoxin levels in 1 week. Digoxin loaded with a total of 1 mg few days ago. Keep potassium greater than 4 and magnesium greater than 2.0 at all times. Restart Eliquis for anticoagulation as patient does not want any cardiac catheterization at the present point of time. Acute versus acute on chronic combined systolic and diastolic congestive heart failure exacerbation: Echocardiogram from 07/19/2024 showed an EF of 30 to 35% with severe LV systolic dysfunction. Diastolic function present but cannot be graded because of the atrial fibrillation. Mildly reduced RV function. Moderately elevated RVSP at 45 to 50 mmHg. Severely dilated LA and mildly dilated RA. Dilated IVC. Moderate MR and moderate TR. Moderate aortic valve stenosis without stenosis. 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 Patient is doing well and diuresing well with Lasix 40 mg IV once daily and can be changed to Lasix 40 mg once daily at the time of discharge tomorrow. Patient breathing on room air and not hypoxic. Strict input output, daily weights and 2 g sodium diet. Patient does inform us that she does have a history of cardiomyopathy diagnosed in 2002 and had workup more than 10 years ago with an angiogram which was apparently negative. Will need to obtain outside records from her application systems engineer office in [place]. Will need goal-directed medical therapy given the severe systolic congestive heart failure, continue metoprolol 50 mg once daily and started Entresto at half tablet twice a day for now. Continue to monitor renal function eventually as outpatient patient will need to be started on spironolactone. Patient was recommended left and right heart cardiac catheterization given the cardiomyopathy / heart failure and her last workup was more than 10 years ago. Patient apparently spoke to her application systems engineer office and they recommended on holding of the cardiac catheter at the present moment and she wants to continue the workup as outpatient with her application systems engineer at [facility] in [place]. Patient explained the risk benefits and alternatives of the same and had a detailed discussion with her Patient unsure when is her next appointment and is also unsure why she was not on Entresto given her history of cardiomyopathy. Recommended to follow-up in 1 week with her application systems engineer or my office that she has been started on digoxin to check digoxin level and also to evaluate her renal function as patient has been started on Lasix, Entresto. Digoxin levels will be affected with acute kidney injury and need to be followed up closely. Hx CVA with residual left-sided deficit Family history of coagulopathy Head CT negative for acute pathology. History of hypercoagulability and several uncles, father passed of clotting disorder at the age of 46. Continue home ASPIRIN 81 mg daily Transient transaminase She had slight bump in LFTs, which appears to be improving, AST 110 > 71, ALT 281 > 257, ALP normal. Liver ultrasound showed 15.4 cm fluid around the liver, no focal liver lesion. Asthma No sign of asthma exacerbation ALBUTEROL was discontinued 2/2 beta agonism, denies wheezing or shortness of breath. May not need ALBUTEROL on discharge, recommended alternative such as [place] to be discussed with PCP. Hypothyroidism TSH 9.2, free T4 1.92, primary team decreased home LEVOTHYROXINE dose appropriately. Management of rest of the medical conditions as per primary team and other consultants. Thank you for the consult and allowing me to participate in the care of the patient. Cardiology will continue to follow. Balta Polanco M.D. Interventional Cardiology Time Spent With Patient Time: Total time spent is greater than 50% in coordination of care (as documented) at patient's floor/unit and/or counseling patient:
[2024-07-22] MEDS: ACETAMINOPHEN 325 MG TABLET 650 MG PO (13:01)
--- NOTE | 2024-07-22 14:57 | PC.SS ---
Rounding note: patient had episode of nausea and lightheadedness, anticipate d/c tomorrow back home.
[2024-07-22] MEDS: APIXABAN 2.5 MG TABLET 5 MG PO (21:02)
[2024-07-23] VITALS (10 sets, daily range): BP systolic 98–124; BP diastolic 57–91; PULSE 68–105; RESP 12–99; TEMP 36.1–36.6; O2SAT 96–100
[2024-07-23] MEDS: LEVOTHYROXINE SODIUM 25 MCG TABLET PO (05:34)
[2024-07-23] MEDS: FLUTICASONE 220 MCG 2 PUFF INH (06:16)
[2024-07-23 06:53] LABS: Basophils # (Auto) 0.1 Thou/mm3 (0.0-0.2); Basophils % (Auto) 1 % (0-2.5); Eosinophils # (Auto) 0.3 Thou/mm3 (0.0-0.5); Eosinophils % (Auto) 2 % (0-10); Hematocrit 47.3 % (36.0-46.0); Immature Granulocytes % (Auto) 1 % (0-0); Immature Granulocytes Auto 0.09 Thou/mm3 (0.00-0.00); Lymphocytes # (Auto) 2.9 Thou/mm3 (1.0-4.8); Lymphocytes % (Auto) 25 % (10-50); Mean Corpuscular HGB Conc 33.8 g/dl (31.0-37.0); Mean Corpuscular Hemoglobin 31.7 pg (25.0-35.0); Mean Corpuscular Volume 94 fL (80-100); Monocytes # (Auto) 0.9 Thou/mm3 (0.0-0.8); Monocytes % (Auto) 8 % (0-12); Neutrophils # (Auto) 7.4 Thou/mm3 (1.8-7.7); Neutrophils % (Auto) 64 % (37-80); Nucleated Red Blood Cell % 0 /100 WBC (0); Platelet Count 357 Thou/mm3 (140-440); Red Blood Count 5.04 Miln/mm3 (4.00-5.20); White Blood Count 11.7 Thou/mm3 (3.6-11.0)
[2024-07-23 07:15] LABS: Alanine Aminotransferase 103 U/L (10-49); Albumin, Serum 4.2 gm/dL (3.4-4.8); Albumin/Globulin Ratio 1.9 (1.2-2.2); Alkaline Phosphatase 102 U/L (46-116); Anion Gap 10 (7-16); Aspartate Amino Transferase 24 U/L (0-34); BUN/Creatinine Ratio 24 Ratio (12-20); Bilirubin,Total 0.8 mg/dL (0.3-1.2); Blood Urea Nitrogen 19 mg/dL (9-23); Carbon Dioxide 25.5 mMol/L (20.0-31.0); Chloride 107 mMol/L (98-107); Creatinine (Component) 0.8 mg/dL (0.6-1.3); Estimated Creatinine Clearance 64.2 mL/min (>60); Globulin 2.2 gm/dL (2.3-3.5); Glucose 97 mg/dL (74-106); Magnesium 2.4 mg/dL (1.6-2.6); Osmolality,Calculated 285 (275-295); Phosphorous 3.3 mg/dL (2.4-5.1); Potassium 4.4 mMol/L (3.4-5.1); Sodium 142 mMol/L (136-145); Total Protein 6.4 gm/dL (5.7-8.2); eGFR > 60 See Note
[2024-07-23] MEDS: DIGOXIN 0.125 MG TABLET 0.25 MG PO (09:03)
[2024-07-23] MEDS: ASPIRIN EC 81 MG TABEC PO (09:03)
[2024-07-23] MEDS: POTASSIUM CHLORIDE 20 mEq TABCR PO (09:05)
[2024-07-23] MEDS: APIXABAN 2.5 MG TABLET 5 MG PO (09:05)
[2024-07-23] MEDS: METOPROLOL SUCCINATE XL 25 MG TABCR 50 MG PO (09:05)
[2024-07-23] MEDS: EZETIMIBE 10 MG TABLET PO (09:06)
[2024-07-23] MEDS: ALLEGRA 180 MG TABLET PO (09:07)
[2024-07-23] MEDS: FUROSEMIDE INJ 10 MG/ML 4ML VIAL 40 MG IVP (09:08)
[2024-07-23] MEDS: ACETAMINOPHEN 325 MG TABLET 650 MG PO (10:06)
--- NOTE | 2024-07-23 10:43 | ESPR_ITS ---
Documentation for date of: 07/23/24 Subjective Subjective Interval history: Patient seen and examined at the bedside. No new complaints including any cardiac complaints. Telemetry reviewed and patient continues to be in atrial fibrillation but rate is better controlled between 80-110 bpm Continue with metoprolol XL 50 mg once daily as well as digoxin 0.25 mg once daily. Recommend to check digoxin levels in 1 week. Digoxin loaded with a total of 1 mg few days ago. Keep potassium greater than 4 and magnesium greater than 2.0 at all times. Restart Eliquis for anticoagulation as patient does not want any cardiac catheterization at the present point of time. Patient was recommended left and right heart cardiac catheterization given the cardiomyopathy / heart failure and her last workup was more than 10 years ago. Patient apparently spoke to her division supervisor office and they recommended on holding of the cardiac catheter at the present moment and she wants to continue the workup as outpatient with her division supervisor at [facility] in [place]. Patient explained the risk benefits and alternatives of the same and had a detailed discussion with her Patient unsure when is her next appointment and is also unsure why she was not on Entresto given her history of cardiomyopathy. Recommended to follow-up in 1 week with her division supervisor or my office that she has been started on digoxin to check digoxin level and also to evaluate her renal function as patient has been started on Lasix, Entresto. Digoxin levels will be affected with acute kidney injury and need to be followed up closely Patient is doing well and diuresing well with Lasix 40 mg IV once daily and can be changed to Lasix 40 mg once daily at the time of discharge tomorrow. Patient breathing on room air and not hypoxic. Strict input output, daily weights and 2 g sodium diet. Patient does inform us that she does have a history of cardiomyopathy diagnosed in 2002 and had workup more than 10 years ago with an angiogram which was apparently negative. Will need to obtain outside records from her division supervisor office in [place]. Will need goal-directed medical therapy given the severe systolic congestive heart failure, continue metoprolol 50 mg once daily and started Entresto at half tablet twice a day for now. Continue to monitor renal function eventually as outpatient patient will need to be started on spironolactone. 07/23/2024: No acute overnight event, no new complaints. Continue metoprolol XL 50 Mg once daily and digoxin 0.25 daily with Lasix 40 Mg daily. Recommend due to magnesium, BMP, digoxin level prior to follow-up outpatient with cardiology. Exam Vital Signs Temp Pulse Resp BP Pulse Ox O2 Del Method O2 Flow Rate 97.8 F 105 H 17 109/57 L 98 Room Air 2 07/23/24 08:00 07/23/24 09:08 07/23/24 08:00 07/23/24 09:08 07/23/24 08:00 07/23/24 08:00 07/19/24 16:00 Narrative Exam General: Alert and oriented x3. obese, In no acute distress. Eyes: Pupils are equal and reactive to light bilaterally. HEENT: Atraumatic, normocephalic. No JVD noted. Mucosa moist. Cardiovascular: Normal S1 and S2.Irregular, 2-3/6 systolic murmur heard at the left apex as well as the right sternal border No peripheral pitting edema noted. Respiratory: No respiratory distress. Lungs are clear to auscultation bilaterally. No wheezing or crackles heard. Abdomen: Soft, nontender, nondistended. Skin: No rash. Warm to touch. Musculoskeletal: No gross injuries. Able to move all 4 extremities. Neuro: Alert and oriented x3. No focal neuro deficits. Psych: Normal affect and mood Objective Labs 07/23/24 06:41 07/23/24 06:41 Labs: Laboratory Results - last 24 hr 07/23/24 06:41 WBC 11.7 H RBC 5.04 Hgb 16.0 Hct 47.3 H MCV 94 MCH 31.7 MCHC 33.8 RDW Std Deviation 49.0 H Plt Count 357 Neut % (Auto) 64 Lymph % (Auto) 25 [place] % (Auto) 8 Eos % (Auto) 2 Baso % (Auto) 1 Neut # (Auto) 7.4 Lymph # (Auto) 2.9 [place] # (Auto) 0.9 H Eos # (Auto) 0.3 Baso # (Auto) 0.1 Immature Gran # (Auto) 0.09 H Absolute Nucleated RBC 0.00 Immature Gran % 1 H Nucleated RBC % 0 Sodium 142 Potassium 4.4 Chloride 107 Carbon Dioxide 25.5 Anion Gap 10 BUN 19 Creatinine 0.8 Estim Creat Clear Calc 64.2 eGFR > 60 BUN/Creatinine Ratio 24 H Glucose 97 Calculated Osmolality 285 Calcium 9.0 Corrected Calcium 9.0 Phosphorus 3.3 Magnesium 2.4 Total Bilirubin 0.8 AST 24 ALT 103 H Alkaline Phosphatase 102 Total Protein 6.4 Albumin 4.2 Globulin 2.2 L Albumin/Globulin Ratio 1.9 Quality Measures Quality Measures none Advance care planning discussed with:: patient Assessment & Plan Assessment Current Active Medications: Generic Name Dose Route Start Last Admin Trade Name Freq PRN Reason Stop Dose Admin Acetaminophen 650 mg 07/17/24 16:17 07/23/24 10:06 Acetaminophen 325 Mg Tablet PO 08/16/24 16:16 650 mg Q6H PRN Administration PAIN 1-3 OR FEVER > 100.4 Apixaban 5 mg 07/17/24 21:00 07/23/24 09:05 Apixaban 2.5 Mg Tablet PO 08/16/24 20:59 5 mg BID MIKE Administration Aspirin 81 mg 07/18/24 09:00 07/23/24 09:03 Aspirin Ec 81 Mg Tabec PO 08/17/24 08:59 81 mg QDAY MIKE Administration Yadira 180 Mg 0 ea 07/18/24 19:00 07/23/24 09:07 Tablet PO 08/17/24 18:59 1 tablet QDAY MIKE Administration Digoxin 0.25 mg 07/20/24 09:00 07/23/24 09:03 Digoxin 0.125 Mg Tablet PO 08/19/24 08:59 0.25 mg QDAY MIKE Administration Ezetimibe 10 mg 07/18/24 09:00 07/23/24 09:06 Ezetimibe 10 Mg Tablet PO 08/17/24 08:59 10 mg QDAY MIKE Administration Fluticasone Propionate 2 puff 07/17/24 16:45 07/23/24 06:16 Fluticasone 220 Mcg 12 Gm Inh INH 08/16/24 16:44 2 puff Q12HR MIKE Administration Furosemide 40 mg 07/19/24 09:00 07/23/24 09:08 Furosemide Inj 10 Mg/Ml 4ml Vial IVP 08/18/24 08:59 40 mg QDAY MIKE Administration Levothyroxine Sodium 25 mcg 07/19/24 06:00 07/23/24 05:34 Levothyroxine Sodium 25 Mcg Tablet PO 08/18/24 05:59 25 mcg ACBR MIKE Administration Metoprolol Succinate 50 mg 07/22/24 09:00 07/23/24 09:05 Metoprolol Succinate Xl 25 Mg Tabcr PO 08/21/24 08:59 50 mg QDAY MIKE Administration Ondansetron HCl 4 mg 07/17/24 16:17 Ondansetron Inj 2 Mg/Ml Inj 2 Ml IVP 08/16/24 16:16 Q6H PRN NAUSEA OR VOMITING Protocol Potassium Chloride 20 meq 07/18/24 09:00 07/23/24 09:05 Potassium Chloride 20 Meq Tabcr PO 08/17/24 08:59 20 meq QDAY MIKE Administration Sacubitril/Valsartan 0.5 tab 07/22/24 14:00 07/23/24 09:07 Sacubitril 24 Mg/Valsartan 26 Mg Tablet PO 08/20/24 20:59 Not Given BID MIKE Plan New onset AFIB with RVR HTN Known history of CHF, EF unknown, admission BNP 384, division supervisor in [place], on home TORSEMIDE daily and CARVEDILOL. No known history of A-fib or arrhythmia, not on anticoagulation or rhythm/rate control. Admission EKG showed A-fib with RVR, HR 140s. Now on DILTIAZEM drip. BP on the softer side. HR remains uncontrolled. SOB likely related to A-fib with RVR. Otherwise she is hemodynamically stable, denies chest pain, shortness of breath, palpitations, satting well on room air. [id number], HASBLED 3. TG 156, HDL 38, cholesterol 146, LDL 77 TSH 9.2, free T4 1.92, primary team decreased home LEVOTHYROXINE dose appropriately. 07/19/2024 On DILTIAZEM 5 mg/HR and DIGOXIN 0.5 mg Q6H, HR slightly better, although remains tachycardic in 130s, spiked occurring with minimal activities again, tele showing A-fib. 07/22/24 Telemetry reviewed and patient continues to be in atrial fibrillation but rate is better controlled between 80-110 bpm Continue with metoprolol XL 50 mg once daily as well as digoxin 0.25 mg once daily. Recommend to check digoxin levels in 1 week. Digoxin loaded with a total of 1 mg few days ago. Keep potassium greater than 4 and magnesium greater than 2.0 at all times. Restart Eliquis for anticoagulation as patient does not want any cardiac catheterization at the present point of time. 07/24/2019: Telemetry reviewed she is still in A.fib rate controlled at 80- 105 ,Continue with metoprolol XL 50 mg once daily as well as digoxin 0.25 mg once daily. continue lasix 40 mg Q day K> k and Mg >2 . follow up in clinic in 1 week with digoxin level, bmp,Mg. Restart Eliquis for anticoagulation as patient does not want any cardiac catheterization at the present point of time. Follow up in cardiology clinic in 1 week . Acute versus acute on chronic combined systolic and diastolic congestive heart failure exacerbation: Echocardiogram from 07/19/2024 showed an EF of 30 to 35% with severe LV systolic dysfunction. Diastolic function present but cannot be graded because of the atrial fibrillation. Mildly reduced RV function. Moderately elevated RVSP at 45 to 50 mmHg. Severely dilated LA and mildly dilated RA. Dilated IVC. Moderate MR and moderate TR. Moderate aortic valve stenosis without stenosis. 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 Patient is doing well and diuresing well with Lasix 40 mg IV once daily and can be changed to Lasix 40 mg once daily at the time of discharge tomorrow. Patient breathing on room air and not hypoxic. Strict input output, daily weights and 2 g sodium diet. Patient does inform us that she does have a history of cardiomyopathy diagnosed in 2002 and had workup more than 10 years ago with an angiogram which was apparently negative. Will need to obtain outside records from her division supervisor office in [place]. Will need goal-directed medical therapy given the severe systolic congestive heart failure, continue metoprolol 50 mg once daily and started Entresto at half tablet twice a day for now. Continue to monitor renal function eventually as outpatient patient will need to be started on spironolactone. Patient was recommended left and right heart cardiac catheterization given the cardiomyopathy / heart failure and her last workup was more than 10 years ago. Patient apparently spoke to her division supervisor office and they recommended on holding of the cardiac catheter at the present moment and she wants to continue the workup as outpatient with her division supervisor at [facility] in [place]. Patient explained the risk benefits and alternatives of the same and had a detailed discussion with her Patient unsure when is her next appointment and is also unsure why she was not on Entresto given her history of cardiomyopathy. Recommended to follow-up in 1 week with her division supervisor or my office that she has been started on digoxin to check digoxin level and also to evaluate her renal function as patient has been started on Lasix, Entresto. Digoxin levels will be affected with acute kidney injury and need to be followed up closely. Hx CVA with residual left-sided deficit Family history of coagulopathy Head CT negative for acute pathology. History of hypercoagulability and several uncles, father passed of clotting disorder at the age of 46. Continue home ASPIRIN 81 mg daily Transient transaminase She had slight bump in LFTs, which appears to be improving, AST 24 , ALT 103 , ALP normal. Liver ultrasound showed 15.4 cm fluid around the liver, no focal liver lesion. Asthma No sign of asthma exacerbation ALBUTEROL was discontinued 2/2 beta agonism, denies wheezing or shortness of breath. May not need ALBUTEROL on discharge, recommended alternative such as MONTELUKAST to be discussed with PCP. Hypothyroidism TSH 9.2, free T4 1.92, primary team decreased home LEVOTHYROXINE dose appropriately. Management of rest of the medical conditions as per primary team and other consultants. Case Discussed with my attending Dr Patrick Zheng MD, PGY-3
--- NOTE | 2024-07-23 11:10 | ESDS_ITS ---
<Statement entered by Rocío Thomson MD - 07/27/24 14:42> I reviewed above note and agree with findings and plans. I have also personally examined the patient with medicine team and went over assessment and plan with medical team including general internal medicine physician and resident physician. Planned Discharge Date 07/23/24 DS: Providers Provider Date of admission: 07/17/24 16:17 Primary care physician: Valeri Brothers PA-C Admitting Provider: Pretty Hobson MD Attending Provider on Admission: Rocío Thomson MD Consults: 07/17/24 16:22 Consult to Cardiology Stat Comment: Consulting Provider: Balta Polanco Attending Provider on DC: Josep Townsend MD Discharging Provider: Josep Townsend MD DS: Diagnosis Problem List Completed Was Problem List Reviewed/Reconciled?: Yes Hospital Course Hospital Course Hospital course: Florecita Farrar is a 63-year-old female with past medical history of 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 She states that starting 4 to 5 days ago she experienced shortness of breath and a raspy voice for which she went to her PCP and was given short course of azithromycin and prednisone. Symptoms did not improve and brought her to the ED, and found to be in A-fib with RVR with heart rate in 140s to 150s. Leading up to admission, patient did not endorse any chest pain, palpitations, or lightheadedness. Even while talking to her at bedside with HR in 130s she did not feel short of breath or palpitations. Has never happened before. In ED, initial vitals of BP 88/68, HR 141, other vitals stable. WBC 16, K 3.8, Mg 2.4, AST 103, ALT 265, BNP 384, trop negative. EKG showed heart rate 156, irregular, unable to appreciate P waves thus likely A-fib with RVR. CXR showed mildly enlarged cardiac contour, vascular congestion, possible early septal edema at lung bases. CT head negative for acute findings but did show evidence of old infarct of left cerebellar hemisphere. She was continued on diltiazem drip with all other home antihypertensives held to make room in order to uptitrate on diltiazem, Eliquis 5 mg p.o. twice daily started, and cardiology consulted. However, patient's echo showed EF 30 to 35% with severe LV systolic dysfunction, severely dilated LA and mildly dilated RA, dilated IVC, moderate MR and TR, with overall picture appearing to be dilated cardiomyopathy. Given echo findings, diltiazem drip was stopped and patient was started on metoprolol succinate and digoxin, as well as Lasix. After changing medications, heart rate remained in 90s to low 100s with borderline BP of 100s- 110s/60s. Also started patient on 0.5 tablet of Entresto BID but instructed patient to only take if her blood pressure permits at home. She is in agreement to follow-up with Dr. Polanco outpatient in the meantime, until she can follow-up with her packaging coordinator in [place]. Instructed her to obtain a BMP, magnesium, and digoxin levels prior to her appointment with him in a week from now. Diagnoses during admission: #New onset atrial fibrillation with RVR #HFrEF (30-35%, 06/2024) #History of dilated cardiomyopathy #History of CVA with left-sided deficits #Hypertension #Asthma #Hypothyroidism Discharge instructions: ? Continue taking metoprolol succinate 50 mg daily for your atrial fibrillation ? Continue taking digoxin 0.25 mg daily for your atrial fibrillation ? Continue taking eliquis 5 mg twice per day for your atrial fibrillation ? Continue taking entresto 0.5 tablet twice daily for heart failure ? Your levothyroxine dose was halved to 25 mcg, follow-up with your PCP regarding dosage change ? Your torsemide was held and instead you were started on lasix 40 mg daily ? Your amlodipine, carvedilol, and isosorbide mononitrate have been held, follow-up with your packaging coordinator prior to restarting ? Continue taking all other home medications as prescribed ? Follow-up with cardiology outpatient within 7 days with labs (BMP, magnesium, digoxin levels) ? Follow-up with PCP within 1-2 weeks of discharge ? Follow-up with your packaging coordinator within 1-2 weeks of discharge ? Return to ED if symptoms worsen or recur ----- Plan discussed with attending physician Dr. Alix Townsend MD PGY-1 Internal Medicine Time Spent with Patient Time attestation: Total time spent providing and/or coordinating discharge services: Time spent: Greater than 30 minutes Exam Vital Signs Temp Pulse Resp BP Pulse Ox O2 Del Method O2 Flow Rate 97.8 F 105 H 17 109/57 L 98 Room Air 2 07/23/24 08:00 07/23/24 09:08 07/23/24 08:00 07/23/24 09:08 07/23/24 08:00 07/23/24 08:00 07/19/24 16:00 Narrative Exam General: AOx3, no acute distress, able to speak full sentences HEENT: NC/AT, mucous membranes moist, bilateral sclera anicteric Cardiovascular: regular rate, irregular, S1/S2 present, no murmurs appreciated Pulmonary: no wheezing or crackles appreciated on exam Abdominal: soft, non-tender, non-distended, no rebound/guarding, normal bowel sounds present Musculoskeletal: trace bilateral lower extremity edema, normal ROM Skin: warm and dry, intact, no rashes Neuro: CN II-XII intact, no focal deficits Discharge Plan Plan Patient Disposition: HOME (Self Care) Care Plan Goals: ? Continue taking metoprolol succinate 50 mg daily for your atrial fibrillation ? Continue taking digoxin 0.25 mg daily for your atrial fibrillation ? Continue taking eliquis 5 mg twice per day for your atrial fibrillation ? Continue taking entresto 0.5 tablet twice daily for heart failure ? Your levothyroxine dose was halved to 25 mcg, follow-up with your PCP regarding dosage change ? Your torsemide was held and instead you were started on lasix 40 mg daily ? Your amlodipine, carvedilol, and isosorbide mononitrate have been held, follow-up with your packaging coordinator prior to restarting ? Continue taking all other home medications as prescribed ? Follow-up with cardiology outpatient within 7 days with labs (BMP, magnesium, digoxin levels) ? Follow-up with PCP within 1-2 weeks of discharge ? Follow-up with your packaging coordinator within 1-2 weeks of discharge ? Return to ED if symptoms worsen or recur Prescriptions/Referrals Prescriptions/Med Rec: New apixaban 5 mg tablet 5 mg PO BID 30 Days Qty: 60 0RF metoprolol succinate 50 mg tablet extended release 24 hr 50 mg PO QDAY 30 Days Qty: 30 0RF levothyroxine [Synthroid] 25 mcg tablet 25 mcg PO QDAY 30 Days Qty: 30 0RF digoxin 250 mcg (0.25 mg) tablet 250 mcg PO QDAY Qty: 30 0RF Entresto 24-26 mg tablet 0.5 tab PO BID Qty: 30 0RF furosemide [Lasix] 40 mg tablet 40 mg PO QDAY Qty: 30 0RF Continued ezetimibe 10 mg tablet 10 mg PO QDAY fluticasone propionate 220 mcg/actuation HFA aerosol inhaler 2 puff INHALATION Q12H Patient Comments: TAKE 2 PUFFS BY MOUTH TWICE A DAY potassium chloride 20 mEq tablet,ER particles/crystals 20 meq PO QDAY azelastine 0.05 % drops 1 drp OPHTHALMIC (EYE) BID Patient Comments: INSTILL 1 DROP INTO BOTH EYES TWICE A DAY Held carvedilol 3.125 mg tablet 3.125 mg PO Q12H Hold Instructions: Resume on 08/03/24. Patient Comments: TAKE 1 TABLET BY MOUTH TWICE A DAY WITH FOOD isosorbide mononitrate 30 mg tablet extended release 24 hr 30 mg PO BID Hold Instructions: Resume on 08/03/24. torsemide 20 mg tablet 20 mg PO QDAY Hold Instructions: Hold until you follow-up with your PCP Patient Comments: TAKE 1 TABLET BY MOUTH EVERY DAY amlodipine 5 mg tablet 5 mg PO QDAY Hold Instructions: Resume on 08/03/24. levothyroxine 50 mcg tablet 50 mcg PO QDAY Hold Instructions: Hold until you follow-up with your PCP Patient Comments: TAKE 1 TABLET BY MOUTH EVERY DAY Discontinued albuterol sulfate 90 mcg/actuation HFA aerosol inhaler 2 puff INHALATION Q12H Patient Comments: INHALE 2 PUFFS INTO THE LUNGS EVERY 6 HOURS NEEDED FOR WHEEZE azithromycin 250 mg tablet 500 mg PO DAILY Patient Comments: TAKE 2 TABLETS BY MOUTH TODAY, THEN TAKE 1 TABLET DAILY FOR 4 DAYS DIRECTED prednisone 20 mg tablet 40 mg PO DAILY Patient Comments: TAKE 2 TABLETS BY MOUTH EVERY DAY Referrals: Valeri Brothers PA-C [Primary Care Provider] - Patient/Caregiver Discharge Instructions Education Materials: AFL/Afib, ED Atrial Fibrillation Print Language: Pashto Stand Alone Forms: [employer] Award Info., Patient Portal Info Letter Discharge Order Discharge Orders: Discharge (Routine); Ordered 07/23/24 Ordered By: Josep Townsend Quality Discharge Quality Measures VTE prophylaxis
--- NOTE | 2024-07-23 11:54 | PC.CC ---
Notified digoxin requires PA at pharmacy. Submitted and approved until 07/23/25. Updated [facility] and Dr. Townsend.
--- NOTE | 2024-07-23 12:17 | PC.SS ---
SS met with pt at bs to confirm DC plan home, pt is agreeable and eager to DC home. IMM provided.
== END 2024-07-23 14:30 | disposition home or self-care (01) | DRG 308 ==
LOC: SERX 15:46 → SERHOLD 16:38 → S2NX 17:47
PROVIDERS: Nurse Practitioner Family; Admitting Provider Student in an Organized Health Care Education/Training Program; Emergency Provider Family Medicine; PCP Physician Assistant; Visit Provider Internal Medicine
DX: I48.91 Unspecified atrial fibrillation (principal); I50.21 Acute systolic (congestive) heart failure; N17.9 Acute kidney failure, unspecified; D68.59 Other primary thrombophilia; E03.9 Hypothyroidism, unspecified; I42.0 Dilated cardiomyopathy; I69.30 Unspecified sequelae of cerebral infarction; I11.0 Hypertensive heart disease with heart failure; J45.909 Unspecified asthma, uncomplicated; E78.5 Hyperlipidemia, unspecified; I35.0 Nonrheumatic aortic (valve) stenosis; R74.01 Elevation of levels of liver transaminase levels; I35.8 Other nonrheumatic aortic valve disorders; Z90.11 Acquired absence of right breast and nipple; Z85.3 Personal history of malignant neoplasm of breast; Z79.01 Long term (current) use of anticoagulants; Z79.82 Long term (current) use of aspirin; Z79.890 Hormone replacement therapy; Z79.899 Other long term (current) drug therapy; Z90.710 Acquired absence of both cervix and uterus; Z53.29 Procedure and treatment not carried out because of patient's decision for other reasons
CPT/HCPCS: 36415; 70450; 71045; 76705; 80053; 80061; 80307; 81001; 83735; 83880; 84100; 84439; 84443; 84484; 85025; 85610; 85730; 87086; 87400; 87811; 93005; 93306; 94640; 96372; 96374; 99291; J1650; J1938; J3490; A9270

== ENCOUNTER → 2024-08-03 | Outpatient (CLI) | payer MEDICARE, BC, SELFPAY ==
[2024-08-03 11:24] LABS: Alanine Aminotransferase 47 U/L (10-49); Albumin, Serum 4.2 gm/dL (3.4-4.8); Albumin/Globulin Ratio 1.9 (1.2-2.2); Alkaline Phosphatase 78 U/L (46-116); Anion Gap 10 (7-16); BUN/Creatinine Ratio 14 Ratio (12-20); Bilirubin,Total 0.7 mg/dL (0.3-1.2); Blood Urea Nitrogen 13 mg/dL (9-23); Calcium 9.8 mg/dL (8.3-10.6); Calcium (Corrected) 9.8 mg/dL (8.5-10.1); Cardiac Risk Estimate 3.8 RATIO (3.7-5.6); Chloride 106 mMol/L (98-107); Cholesterol 190 mg/dL (132-200); Creatinine (Component) 0.9 mg/dL (0.6-1.3); Digoxin 1.8 ng/mL (0.8-2.0); Globulin 2.2 gm/dL (2.3-3.5); Glucose 97 mg/dL (74-106); HDL Cholesterol 50 mg/dL (40-60); LDL Cholesterol,Calculated 121 mg/dL (0-130); Magnesium 2.3 mg/dL (1.6-2.6); Osmolality,Calculated 288 (275-295); Potassium 4.3 mMol/L (3.4-5.1); Sodium 145 mMol/L (136-145); Thyroid Stimulating Hormone 3.95 uIU/mL (0.55-4.78); Total Protein 6.4 gm/dL (5.7-8.2); Triglycerides 95 mg/dL (30-150); eGFR > 60 See Note
[2024-08-03 11:31] LABS: Basophils # (Auto) 0.1 Thou/mm3 (0.0-0.2); Basophils % (Auto) 1 % (0-2.5); Eosinophils # (Auto) 0.2 Thou/mm3 (0.0-0.5); Eosinophils % (Auto) 2 % (0-10); Hematocrit 44.1 % (36.0-46.0); Hemoglobin 15.1 g/dL (12.0-16.0); Immature Granulocytes % (Auto) 1 % (0-0); Immature Granulocytes Auto 0.06 Thou/mm3 (0.00-0.00); Lymphocytes # (Auto) 2.6 Thou/mm3 (1.0-4.8); Lymphocytes % (Auto) 24 % (10-50); Mean Corpuscular HGB Conc 34.2 g/dl (31.0-37.0); Mean Corpuscular Hemoglobin 32.1 pg (25.0-35.0); Mean Corpuscular Volume 94 fL (80-100); Monocytes # (Auto) 0.7 Thou/mm3 (0.0-0.8); Monocytes % (Auto) 7 % (0-12); Neutrophils # (Auto) 7.4 Thou/mm3 (1.8-7.7); Neutrophils % (Auto) 67 % (37-80); Nucleated Red Blood Cell % 0 /100 WBC (0); Platelet Count 363 Thou/mm3 (140-440); Red Blood Count 4.71 Miln/mm3 (4.00-5.20); White Blood Count 11.2 Thou/mm3 (3.6-11.0)
[2024-08-03 12:10] LABS: B-Type Natriuretic Peptide 150 pg/mL (0-100)
== END | disposition home or self-care (01) ==
LOC: COPL 09:44
PROVIDERS: PCP Physician Assistant; Referring Provider Physician Assistant; Visit Provider Physician Assistant
DX: I48.91 Unspecified atrial fibrillation (principal); I11.0 Hypertensive heart disease with heart failure; I50.22 Chronic systolic (congestive) heart failure; E03.9 Hypothyroidism, unspecified; E78.5 Hyperlipidemia, unspecified
CPT/HCPCS: 36415; 80053; 80061; 80162; 83735; 83880; 84443; 85025

== ENCOUNTER → 2024-08-20 | Outpatient (CLI) | payer MEDICARE, SELFPAY ==
[2024-08-20 13:09] LABS: Basophils # (Auto) 0.1 Thou/mm3 (0.0-0.2); Basophils % (Auto) 1 % (0-2.5); Eosinophils # (Auto) 0.2 Thou/mm3 (0.0-0.5); Eosinophils % (Auto) 2 % (0-10); Hematocrit 44.3 % (36.0-46.0); Hemoglobin 14.9 g/dL (12.0-16.0); Immature Granulocytes % (Auto) 1 % (0-0); Immature Granulocytes Auto 0.09 Thou/mm3 (0.00-0.00); Lymphocytes # (Auto) 2.6 Thou/mm3 (1.0-4.8); Lymphocytes % (Auto) 23 % (10-50); Mean Corpuscular HGB Conc 33.6 g/dl (31.0-37.0); Mean Corpuscular Hemoglobin 32.7 pg (25.0-35.0); Mean Corpuscular Volume 97 fL (80-100); Monocytes # (Auto) 0.8 Thou/mm3 (0.0-0.8); Monocytes % (Auto) 7 % (0-12); Neutrophils # (Auto) 7.6 Thou/mm3 (1.8-7.7); Neutrophils % (Auto) 67 % (37-80); Nucleated Red Blood Cell % 0 /100 WBC (0); Platelet Count 304 Thou/mm3 (140-440); RDW Standard Deviation 53.8 fL (36.4-46.3); Red Blood Count 4.55 Miln/mm3 (4.00-5.20); White Blood Count 11.4 Thou/mm3 (3.6-11.0)
[2024-08-20 13:22] LABS: Alanine Aminotransferase 52 U/L (10-49); Albumin, Serum 4.1 gm/dL (3.4-4.8); Alkaline Phosphatase 72 U/L (46-116); Anion Gap 8 (7-16); Aspartate Amino Transferase 30 U/L (0-34); BUN/Creatinine Ratio 17 Ratio (12-20); Bilirubin,Total 0.6 mg/dL (0.3-1.2); Blood Urea Nitrogen 15 mg/dL (9-23); Calcium 9.5 mg/dL (8.3-10.6); Calcium (Corrected) 9.5 mg/dL (8.5-10.1); Carbon Dioxide 30.4 mMol/L (20.0-31.0); Chloride 106 mMol/L (98-107); Creatinine (Component) 0.9 mg/dL (0.6-1.3); Globulin 2.1 gm/dL (2.3-3.5); Glucose 119 mg/dL (74-106); Osmolality,Calculated 288 (275-295); Sodium 144 mMol/L (136-145); Total Protein 6.2 gm/dL (5.7-8.2); eGFR > 60 See Note
== END | disposition home or self-care (01) ==
PROVIDERS: PCP Family Medicine; Referring Provider Internal Medicine; Visit Provider Internal Medicine
DX: I49.5 Sick sinus syndrome (principal); Z13.0 Encounter for screening for diseases of the blood and blood-forming organs and certain disorders involving the immune mechanism
CPT/HCPCS: 36415; 80053; 85025; 85610

== ENCOUNTER → 2024-08-26 | Outpatient (CLI) | payer MEDICARE, BC, SELFPAY ==
[2024-08-26 13:36] LABS: B-Type Natriuretic Peptide 101 pg/mL (0-100)
[2024-08-26 13:38] LABS: Anion Gap 6 (7-16); BUN/Creatinine Ratio 13 Ratio (12-20); Blood Urea Nitrogen 12 mg/dL (9-23); Calcium 9.3 mg/dL (8.3-10.6); Carbon Dioxide 30.8 mMol/L (20.0-31.0); Chloride 107 mMol/L (98-107); Creatinine (Component) 0.9 mg/dL (0.6-1.3); Digoxin 2.3 ng/mL (0.8-2.0); Glucose 112 mg/dL (74-106); Osmolality,Calculated 287 (275-295); Potassium 4.2 mMol/L (3.4-5.1); Sodium 144 mMol/L (136-145); eGFR > 60 See Note
== END | disposition home or self-care (01) ==
LOC: COPL 12:28
PROVIDERS: PCP Physician Assistant
DX: I10 Essential (primary) hypertension (principal); I42.8 Other cardiomyopathies; Z51.81 Encounter for therapeutic drug level monitoring; Z79.899 Other long term (current) drug therapy
CPT/HCPCS: 36415; 80048; 80162; 83880

== ENCOUNTER → 2024-09-16 | Outpatient (CLI) | payer MEDICARE, BC, SELFPAY ==
[2024-09-16 14:36] LABS: Basophils # (Auto) 0.1 Thou/mm3 (0.0-0.2); Basophils % (Auto) 1 % (0-2.5); Eosinophils # (Auto) 0.1 Thou/mm3 (0.0-0.5); Eosinophils % (Auto) 1 % (0-10); Hematocrit 42.1 % (36.0-46.0); Hemoglobin 14.3 g/dL (12.0-16.0); Immature Granulocytes Auto 0.12 Thou/mm3 (0.00-0.00); Lymphocytes # (Auto) 2.8 Thou/mm3 (1.0-4.8); Lymphocytes % (Auto) 22 % (10-50); Mean Corpuscular HGB Conc 34.0 g/dl (31.0-37.0); Mean Corpuscular Hemoglobin 32.9 pg (25.0-35.0); Mean Corpuscular Volume 97 fL (80-100); Monocytes # (Auto) 0.9 Thou/mm3 (0.0-0.8); Monocytes % (Auto) 7 % (0-12); Neutrophils # (Auto) 9.0 Thou/mm3 (1.8-7.7); Neutrophils % (Auto) 70 % (37-80); Nucleated Red Blood Cell # 0.00 Thou/mm3 (0.00-0.00); Nucleated Red Blood Cell % 0 /100 WBC (0); Platelet Count 341 Thou/mm3 (140-440); RDW Standard Deviation 55.9 fL (36.4-46.3); Red Blood Count 4.35 Miln/mm3 (4.00-5.20); White Blood Count 12.9 Thou/mm3 (3.6-11.0)
[2024-09-16 14:41] LABS: INR 1.0 (0.9-1.3); Prothrombin Time 10.9 Seconds (9.0-12.2)
[2024-09-16 14:51] LABS: Alanine Aminotransferase 35 U/L (10-49); Albumin, Serum 4.1 gm/dL (3.4-4.8); Albumin/Globulin Ratio 1.7 (1.2-2.2); Alkaline Phosphatase 75 U/L (46-116); Anion Gap 7 (7-16); Aspartate Amino Transferase 25 U/L (0-34); BUN/Creatinine Ratio 16 Ratio (12-20); Bilirubin,Total 0.6 mg/dL (0.3-1.2); Blood Urea Nitrogen 16 mg/dL (9-23); Calcium 9.3 mg/dL (8.3-10.6); Calcium (Corrected) 9.3 mg/dL (8.5-10.1); Carbon Dioxide 32.1 mMol/L (20.0-31.0); Chloride 106 mMol/L (98-107); Creatinine (Component) 1.0 mg/dL (0.6-1.3); Globulin 2.4 gm/dL (2.3-3.5); Glucose 115 mg/dL (74-106); Osmolality,Calculated 290 (275-295); Potassium 3.7 mMol/L (3.4-5.1); Sodium 145 mMol/L (136-145); Total Protein 6.5 gm/dL (5.7-8.2); eGFR > 60 See Note
== END | disposition home or self-care (01) ==
LOC: COPL 12:30
PROVIDERS: PCP Family Medicine; Referring Provider Internal Medicine; Visit Provider Internal Medicine
DX: I48.91 Unspecified atrial fibrillation (principal); I50.9 Heart failure, unspecified
CPT/HCPCS: 36415; 80053; 85025; 85610

== ENCOUNTER → 2024-11-16 | Outpatient (CLI) | payer MEDICARE, BC, SELFPAY ==
[2024-11-16 13:34] LABS: Alanine Aminotransferase 60 U/L (10-49); Albumin, Serum 3.9 gm/dL (3.4-4.8); Albumin/Globulin Ratio 1.9 (1.2-2.2); Alkaline Phosphatase 72 U/L (46-116); Anion Gap 10 (7-16); Aspartate Amino Transferase 35 U/L (0-34); BUN/Creatinine Ratio 19 Ratio (12-20); Bilirubin,Total 1.2 mg/dL (0.3-1.2); Blood Urea Nitrogen 23 mg/dL (9-23); Calcium 9.7 mg/dL (8.3-10.6); Calcium (Corrected) 9.8 mg/dL (8.5-10.1); Carbon Dioxide 29.3 mMol/L (20.0-31.0); Chloride 101 mMol/L (98-107); Creatinine (Component) 1.2 mg/dL (0.6-1.3); Globulin 2.1 gm/dL (2.3-3.5); Glucose 101 mg/dL (74-106); Osmolality,Calculated 283 (275-295); Potassium 4.1 mMol/L (3.4-5.1); Sodium 140 mMol/L (136-145); Total Protein 6.0 gm/dL (5.7-8.2); eGFR 50 See Note
== END | disposition home or self-care (01) ==
LOC: COPL 12:21
PROVIDERS: PCP Physician Assistant; Referring Provider Physician Assistant; Visit Provider Physician Assistant
DX: I50.9 Heart failure, unspecified (principal)
CPT/HCPCS: 36415; 80053

== ENCOUNTER → 2024-12-02 | Outpatient (CLI) | payer MEDICARE, BC, SELFPAY | END | disposition home or self-care (01) | LOC: SLDO 14:40 | PROVIDERS: PCP Physician Assistant; Referring Provider Physician Assistant; Visit Provider Physician Assistant | DX: N39.0 Urinary tract infection, site not specified (principal) | CPT/HCPCS: 87086 ==

== ENCOUNTER 2025-02-08 14:53 | Emergency (ER) | payer MEDICARE, BC, SELFPAY ==
--- NOTE | 2025-02-08 15:05 | PC.NURSE ---
PT BIBA FOR CODE BLUE 20MIN OF CPR WITH MEDIC, SHOCKED X3 EN ROUTE. HAD CHECKED ON PT 30 MIN PRIOR TO HIM FINDING HER DOWN AND PULSELESS. WE CONTINUED COMPRESSIONS HERE, 4 ROUNDS OF EPI, INTUBATED, SHOCKED X1. BICARB AND CALCIUM GIVEN BS 180 PUPILS FIXED AND DILATED TIME OF CALLED AT 1506- ASYSTOLE
--- NOTE | 2025-02-08 15:09 | PD.EDCPR ---
ED CPR RME/HPI General Chief Complaint: Cardiac Arrest/CPR Stated Complaint: CARDIAC ARREST Arrival date/time: 02/08/25 14:53 RME / HPI RME / HPI narrative: 64 year old female with history of atrial fibrillation and asthma presents to the ED BIBA from home as a code blue. Per medics, patient was last known well ~ 30 minutes prior to unwitnessed arrest. Per medics, on scene was noted to be in Vfib rhythm and shocked twice. Was also given 6 rounds of epinephrine prior to arrival. No ROSC was achieved and CPR in progress. Patient was also intubated with i-gel in the field. Prehospital BS 155. Per medics, on scene reported patient had no complaints prior to arrest. Related Data Home Medications ?Medication ?Instructions ?Recorded ?Confirmed amlodipine 5 mg tablet 5 mg PO QDAY 07/17/24 07/17/24 Held on 07/20/24. Instructions: Resume on 08/03/24. azelastine 0.05 % eye drops 1 drp ophthalmic (eye) BID 07/17/24 07/17/24 carvedilol 3.125 mg tablet 3.125 mg PO Q12H 07/17/24 07/17/24 Held on 07/20/24. Instructions: Resume on 08/03/24. ezetimibe 10 mg tablet 10 mg PO QDAY 07/17/24 07/17/24 fluticasone propionate 220 2 puff inhalation Q12H 07/17/24 07/17/24 mcg/actuation HFA aerosol inhaler isosorbide mononitrate 30 mg 30 mg PO BID 07/17/24 07/17/24 tablet,extended release 24 hr Held on 07/20/24. Instructions: Resume on 08/03/24. levothyroxine 50 mcg tablet 50 mcg PO QDAY 07/17/24 07/17/24 Held on 07/23/24. Instructions: Hold until you follow-up with your PCP potassium chloride 20 mEq 20 meq PO QDAY 07/17/24 07/17/24 tablet,extended release(part/cryst) torsemide 20 mg tablet 20 mg PO QDAY 07/17/24 07/17/24 Held on 07/23/24. Instructions: Hold until you follow-up with your PCP Previous Rx's ?Medication ?Instructions ?Recorded digoxin 250 mcg (0.25 mg) tablet 250 mcg PO QDAY #30 tabs 07/23/24 furosemide 40 mg tablet (Lasix) 40 mg PO QDAY #30 tabs 07/23/24 sacubitril 24 mg-valsartan 26 mg 0.5 tab PO BID #30 tabs 07/23/24 tablet (Entresto) Allergies Allergy/AdvReac Type Severity Reaction Status Date / Time ADONIS Inhibitors Allergy Severe Anaphylaxis Verified 07/17/24 11:24 Review of Systems Review of Systems ROS Unobtainable: other (unobtainable, patient presented as a code blue ) Past Medical History Past Medical History NEUROLOGIC: Positive Cerebrovascular Accident (2002) CARDIAC: Positive Cardiac Disorders, Atrial Fibrillation (06/2024), Congestive Heart Failure, Cardiomyopathy and Hypertension RESPIRATORY: Positive Asthma REPRODUCTIVE: Positive Breast Cancer (right partial masectomy) ENDOCRINE: Positive Hypothyroidism HEMATOLOGIC: Positive Clotting Problems (possible) OTHER HISTORY: Positive Cancer and Breast Cancer (right partial masectomy) Family History FAMILY HISTORY: Positive Family Cardiac Disorders (Father from clot at 47yrs) Surgical History SURGICAL: Positive Abdominal Surgery and Hysterectomy; Negative Cardiac Surgery Social History SMOKING STATUS: Never smoker ED Exam Narrative Physical exam: GEN. APPEARANCE: Patient was in cardiac-respiratory arrest with CPR in progress. VITALS: Unobtainable. HEENT: Normocephalic, atraumatic. Pupils fixed and dilated at 9mm bilaterally NECK: Supple, no JVD. CHEST: No deformity and no crepitus. ABDOMEN: Soft, flat. EXTREMITIES: Flaccid. No edema. SKIN: Cool and dry, no rashes noted. NEURO: GCS is 3. Course Quality Measures none Cardiac Arrest / CPR MDM Narrative MDM Narrative:: Nicole Mir am scribing for and in the presence of Dr. Reyez. 1453p: Patient arrived to the ED, CPR in progress. Patient was given 6 rounds of epinephrine, 300mg of Amiodarone, and shocked 3 times for V-Fib. Prehospital BS 155. In the ED, patient received 4 rounds of epinephrine, 1 amp of sodium bicarb, 1 amp of calcium chloride, and shocked once at 200 joules. Patient did not regain pulses. Time of called at 15:06h. Patient data External records reviewed:: [facility] previous records and EMS form Clinical information provided by:: EMS Social determinants that could affect healthcare access:: none Patient has the following chronic illnesses:: Per medics and EMR review, patient has history of atrial fibrillation and asthma. How is presenting disease/condition affected by chronic disease/condition?: exacerbated by Evaluation data The following diagnostics were reviewed and interpreted by me:: other (specify) (Patient ) Lab and/or radiology exams considered but not ordered:: None Interpretation Summary: N/A Medications / Prescriptions Medications or Prescriptions considered but not ordered:: None Medication administrations:: Please refer to nurses code sheet for medication administration Consultations Consultation(s) initiated? (list below): No Diagnosis Cardiac arrest differential diagnosis: acute massive pulmonary embolism, acute respiratory failure, acute myocardial infarction, cardiac arrest and sudden cardiac Most likely diagnosis given after review of the tests above:: Cardiac arrest Admission Indicated Admission indicated?: not indicated Explain why admission is indicated or not indicated:: Patient Admission Request Was there a request for admission?: No Disposition Plan Disposition Plan: other (specify) (Patient ) Discharge Plan Plan Patient Disposition: Prescriptions/Referrals Referrals: Valeri Brothers PA-C [Primary Care Provider] - In 1 week Problem List Clinical Impression: Cardiac arrest Patient/Caregiver Discharge Instructions Print Language: Korean
--- NOTE | 2025-02-08 16:02 | PC.NURSE ---
CONTACTED [facility] [phone]
== END 2025-02-08 17:34 | disposition expired ==
PROVIDERS: Emergency Provider Emergency Medicine; PCP Physician Assistant
DX: I49.01 Ventricular fibrillation (principal); I46.2 Cardiac arrest due to underlying cardiac condition
CPT/HCPCS: 31500; 92950; 99291; J0168